=== PATIENT | female | born 1945 | race Caucasian/White ===

== ENCOUNTER 2017-10-12 09:52 | Outpatient (CLI) | payer MEDICARE ==
[~2017-10-12 09:52] MED LIST: Iopamidol 370 76% 100 ML VIAL ONE
== END 2017-10-12 09:53 | disposition home or self-care (01) ==
LOC: BICCT 09:52
PROVIDERS: ATTEND Family Medicine
DX: R31.0 Gross hematuria (principal)
CPT/HCPCS: 74178

== ENCOUNTER 2017-10-26 16:05 | Outpatient (CLI) | payer MEDICARE ==
[2017-10-26 18:05] LABS: Bilirubin Negative (Negative); Blood, Urine Trace (Negative); Clarity CLEAR (Clear); Glucose, Urine (Dipstick) Negative (Negative); Leukocyte Negative (Negative); Nitrite Negative (Negative); Protein, Urine (Dipstick) Negative (Neg-Trace); Urobilinogen 0.2 mg/dL (0.2-1.0); pH, Urine 5.5 (5.0-9.0)
[2017-10-26 18:08] LABS: Bacteria/HPF None Seen HPF (None Seen); Hemoglobin 14.2 g/dL (12.0-16.0); Hyaline Casts/LPF 0-3 HYALINE CAST LPF (0-3 Hyaline); Mean Corpuscular HGB CONC 32.8 g/dL (32.0-36.0); Mean Corpuscular Hemoglobin 31.2 pg (27.0-31.0); Mean Platelet Volume 7.4 fL (7.4-10.4); Platelet Count 310 thou/uL (130-400); RBC Distribution Width 11.7 % (11.5-14.5); RBC/HPF 0-3 HPF (0-3); Red Blood Cell (RBC) Count 4.57 mill/uL (4.20-5.40); Squamous Epithelial 0-3 HPF (0-3); WBC/HPF 0-3 HPF (0-3); White Blood Cell (WBC) Count 9.3 thou/uL (4.8-10.8)
[2017-10-26 18:16] LABS: INR-International Normal Ratio 0.9; PTT 28.4 SEC (22.9-36.1); Prothrombin Time 12.6 SEC (12.0-14.7)
[2017-10-26 18:29] LABS: Anion Gap 10 mmol/L (10-20); BUN (Urea Nitrogen) 23 mg/dL (9.8-20.1); Calc. Creatinine Clearance 0 mL/min (70-130); Calcium 9.6 mg/dL (7.8-10.44); Carbon Dioxide 29 mmol/L (23-31); Chloride 101 mmol/L (98-107); Estimated GFR-MDRD 45; Glucose 83 mg/dL (83-110); Potassium 3.8 mmol/L (3.5-5.1); Sodium 136 mmol/L (136-145)
== END 2017-10-26 16:06 | disposition home or self-care (01) ==
LOC: LABBT 16:05
PROVIDERS: ATTEND Urology
DX: Z01.818 Encounter for other preprocedural examination (principal); N32.9 Bladder disorder, unspecified
CPT/HCPCS: 80048; 81001; 85027; 85610; 85730; 87086; 93005; 93010

== ENCOUNTER 2017-11-01 12:24 | Day surgery (SDC) | payer MEDICARE ==
[2017-10-26 16:20] VITALS: BMI 27.3
[2017-11-01] MEDS ORDERED: cefTRIAXone\\ROCEPHIN 1 GM, Syringe 0.4 ML in Sterile Water 9.6 ML SLOW IVP SCH (13:30)
[2017-11-01] MEDS ORDERED: Lidocaine 1% PF 5 ML VIAL ONE (14:31)
[2017-11-01] MEDS ORDERED: ePHEDrine/0.9% NaCl/PF SYRINGE 50 mg/10 ml ONE (14:31)
[2017-11-01] MEDS ORDERED: PROPOFOL 200 MG/20 ML VIAL ONE (14:31)
[2017-11-01] MEDS ORDERED: Fentanyl 100 MCG/2 ML VIAL ONE (14:55)
[2017-11-01] MEDS ORDERED: B & O ONE (15:10)
[2017-11-01] MEDS ORDERED: Ondansetron HCl/PF 4 MG/2 ML Vial ONE (17:21)
--- NOTE | 2017-11-01 19:34 | OP ---
DATE OF PROCEDURE: 11/01/2017 SERVICE: Urology. SURGEON: Moisés Goodman M.D. PREOPERATIVE DIAGNOSIS: Bladder lesion. POSTOPERATIVE DIAGNOSIS: Bladder lesion. PROCEDURE PERFORMED: Cystoscopy with bladder biopsies. INDICATIONS FOR PROCEDURE: Ms. Torrez is a 72-year-old white female who initially presented to me with a history of hematuria. Cystoscopy demonstrated that she had 2 red patches on the posterior asp ects of her bladder on either side with CT demonstrating thickening of the bladder wall, but no upper tract lesions. This was somewhat concerning for carcinoma in situ. Therefore, we have elected to b ring her back to the operating room for bladder biopsies. Risks and benefits of surgery have been di scussed and she has agreed to proceed forward. DESCRIPTION OF PROCEDURE: After identification of armband and verification of consent, the patient w as brought back to the operating room where she underwent general anesthesia with an LMA. She was th en placed in dorsal lithotomy position and prepped and draped in the usual sterile fashion. After ap propriate timeout, a lubricated 22 Panamanian rigid cystoscope was introduced per urethra into the bladde r. The patient has a fairly significant cystocele which was reduced using 4 x 4 gauzes rolled up int o a cylinder and inserted into the vagina as a pessary. These were lubricated to avoid abrasions on the vaginal serna. Once this was in place, a full cystoscopy was performed and there were no obvious bladder tumors, but the two red patches previously noted were still present. The trigone was inspec susi and there was some initial difficulty finding the ureteral orifices. Methylene blue was given in travenously, but before it could be excreted, the ureters were identified with cystoscope to ensure t hat these were indeed the ureters. They were cannulated with a 0.038 Glidewire, which passed easily into the distal ureter. Satisfied that the lesions were far away from the ureteral orifices, cold cu p biopsy forceps were used to take 2 biopsies from the right posterior bladder lesion and one biopsy from the left posterior lesion which was smaller. A total of 3 biopsies were taken and both the area s were completely fulgurated with the Bugbee electrode. Upon completion, there was excellent hemosta sis and no obvious bleeding. The bladder was emptied and the cystoscope was removed. The vaginal pa cking was removed as well. The patient was then awakened and taken to PACU for recovery in stable co ndition. COMPLICATIONS: None. ESTIMATED BLOOD LOSS: Minimal. RETAINED TUBES AND DRAINS: None. SPECIMENS: Bladder biopsies x3. DISPOSITION: The patient will be discharged home and follow up with me in approximately 1-2 weeks fo r a postop check.
== END 2017-11-01 20:59 | disposition home or self-care (01) ==
LOC: SDC 12:24
PROVIDERS: ATTEND Urology
PROC: 0T5B8ZZ Destruction of Bladder, Via Natural or Artificial Opening Endoscopic (ICD-10-PCS; principal; 2017-11-01)
DX: N32.9 Bladder disorder, unspecified (principal); N39.41 Urge incontinence; N39.0 Urinary tract infection, site not specified; N81.10 Cystocele, unspecified; Z79.82 Long term (current) use of aspirin; Z79.899 Other long term (current) drug therapy; Z90.5 Acquired absence of kidney
CPT/HCPCS: 52214; C1769; Q9968; 88305; A4216; J0696; J2001; J2405; J2704; J3010

== ENCOUNTER 2018-02-28 17:11 | Observation (INO) | payer MEDICARE ==
[2018-02-28] MEDS ORDERED: hydrALAZINE 20 MG/ML VIAL ONE ×2 (17:45→23:22)
[2018-02-28 17:49] LABS: #Basophils 0.1 thou/uL (0.0-0.2); #Eosinphils 0.2 thou/uL (0.0-0.7); #Lymphocytes 2.8 thou/uL (1.20-3.40); #Monocytes 0.7 thou/uL (0.11-0.59); #Neutrophils 6.1 thou/uL (1.40-6.50); %Basophils 0.7 % (0.0-1.0); %Eosinophils 1.6 % (0.0-10.0); %Lymphocytes 28.3 % (21.0-51.0); %Monocytes 7.4 % (0.0-10.0); %Neutrophils 62.1 % (42.0-75.0); Hemoglobin 15.1 g/dL (12.0-16.0); Mean Corpuscular HGB CONC 34.1 g/dL (32.0-36.0); Mean Corpuscular Hemoglobin 31.8 pg (27.0-31.0); Mean Corpuscular Volume 93.2 fL (78.0-98.0); Platelet Count 296 thou/uL (130-400); RBC Distribution Width 11.7 % (11.5-14.5); Red Blood Cell (RBC) Count 4.76 mill/uL (4.20-5.40); White Blood Cell (WBC) Count 9.8 thou/uL (4.8-10.8)
[2018-02-28 17:55] LABS: PTT 29.9 SEC (22.9-36.1); Prothrombin Time 13.7 SEC (12.0-14.7)
[2018-02-28 18:14] LABS: CKMB 3.3 ng/mL (0-6.6); Troponin I Less than 0.010 ng/mL (< 0.028)
[2018-02-28 18:15] LABS: ALT (SGPT) 13 U/L (8-55); AST (SGOT) 18 U/L (5-34); Albumin 4.3 g/dL (3.4-4.8); Alkaline Phosphatase 95 U/L (40-150); Anion Gap 13 mmol/L (10-20); BUN (Urea Nitrogen) 15 mg/dL (9.8-20.1); Bilirubin, Total 0.4 mg/dL (0.2-1.2); CK (CPK) 142 U/L (29-168); Calc. Creatinine Clearance 0 mL/min (70-130); Calcium 8.9 mg/dL (7.8-10.44); Carbon Dioxide 23 mmol/L (23-31); Chloride 103 mmol/L (98-107); Estimated GFR-MDRD 43; Globulin 3.7 g/dL (2.4-3.5); Glucose 116 mg/dL (83-110); Potassium 3.8 mmol/L (3.5-5.1); Sodium 135 mmol/L (136-145)
--- NOTE | 2018-02-28 21:52 | CT ---
CT HEAD NONCONTRAST: 02/28/18 HISTORY: Altered mental status. Dizziness. Hypertension. FINDINGS: There is no evidence of acute intracranial hemorrhage or infarct. Ventricles appear normal in size, s hape and position. There is no mass effect or shift of midline structures. The visualized paranasal s inuses remain well aerated. IMPRESSION: No acute intracranial abnormalities are demonstrated on noncontrast CT head. POS: BST
[2018-03-01] MEDS ORDERED: Calcium Carbonate 500 MG ChewTAB PO PRN (00:04)
[2018-03-01] MEDS ORDERED: Nitroglycerin 0.4 MG TAB (25 Tab Bottle) PO PRN (00:04)
[2018-03-01] MEDS ORDERED: Senokot 8.6 MG TAB PO PRN (00:04)
[2018-03-01] MEDS ORDERED: Mag-Al 1200 mg/1200 mg/30 ML UDCUP PO PRN (00:04)
[2018-03-01] MEDS ORDERED: Acetaminophen 325 MG TAB PO PRN (00:04)
[2018-03-01 00:25] LABS: Troponin I Less than 0.010 ng/mL (< 0.028)
--- NOTE | 2018-03-01 00:26 | HP ---
DATE OF ADMISSION: 02/28/2018 The patient was seen and examined on 02/28/2018. PRIMARY CARE PHYSICIAN: MARY Ruby PRIMARY SYSTEMS SUPPORT SPECIALIST: Dr. Weinberg. Please note that patient was sent from Dr. Weinberg's office. CHIEF COMPLAINT: Stroke-like symptoms. HISTORY OF PRESENT ILLNESS: The patient is a 72-year-old female with paroxysmal atrial fibrillation, on anticoagulation, and hypertension, who presented to the emergency room with elevated blood pressu re along with some nonspecific stroke-like symptoms. She was seen by Dr. Weinberg and was referred to the emergency room. Her blood pressure in Dr. Weinberg's office was over 200 systolic per patient repo rt. She has been feeling dizzy since this morning along with some nausea. At times, she has difficu lty writing with the right hand. She had some difficulty walking today. She had some dizziness with out any syncope. No chest pain, palpitations, double vision, blurring of vision, facial asymmetry, w eakness, numbness of any of her extremity reported. In the emergency room, initial vital signs showed temperature 98.7, respirations 20, pulse rate of 67 with a blood pressure 222/105. O2 saturation of 99% on room air. CT scan of the brain was negative for acute findings. She received IV hydralazine along with her nighttime medications in the emergen cy room. PAST MEDICAL HISTORY: 1. Paroxysmal atrial fibrillation, on anticoagulation. 2. Hypertension. 3. Cataracts. 4. Chronic urinary incontinence. 5. History of left renal infarction. 6. Chronic kidney disease, stage 3. PAST SURGICAL HISTORY: 1. Ablation. 2. Bilateral cataract surgery. 3. Bladder suspension. 4. Hysterectomy. ALLERGIES: The patient denies any drug allergies. CURRENT HOME MEDICATIONS: Eliquis 5 mg twice a day, metoprolol tartrate 50 mg twice a day, flecainid e 50 mg b.i.d. SOCIAL HISTORY: Patient currently lives at home with her family. 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 She makes her own decision with the help of her family. FAMILY HISTORY: Positive for congestive heart failure. REVIEW OF SYSTEMS: The following complete review of systems was negative, unless otherwise mentioned in the HPI or below: Constitutional: Weight loss or gain, ability to conduct usual activities. Sk in: Rash, itching. Eyes: Double vision, pain. ENT/Mouth: Nose bleeding, neck stiffness, pain, te nderness. Cardiovascular: Palpitations, dyspnea on exertion, orthopnea. Respiratory: Shortness of breath, wheezing, cough, hemoptysis, fever, or night sweats. Gastrointestinal: Poor appetite, abdo nakia pain, heartburn, nausea, vomiting, constipation, or diarrhea. Genitourinary: Urgency, frequen cy, dysuria, nocturia. Musculoskeletal: Pain, swelling. Neurologic/Psychiatric: Anxiety, depressi on. Allergy/Immunologic: Skin rash, bleeding tendency. PHYSICAL EXAMINATION: VITAL SIGNS: As discussed above. GENERAL: A 72-year-old female in no apparent distress. HEENT: Head atraumatic, normocephalic. Sclerae are anicteric. Moist mucous membrane, no oral lesio n. NECK: Supple, no JVD appreciated. No carotid bruit. LUNGS: Clear to auscultation bilaterally. No wheezing, rales or rhonchi. HEART: S1 and S2 present. Regular rate and rhythm. No murmur, rubs, or gallops appreciated. ABDOMEN: Soft, nontender, bowel sounds present. EXTREMITIES: No edema or calf tenderness. NEUROLOGIC: Cranial nerves II-XII were normal on examination. Power was 5/5 in all extremities. Fi furp-im-ojcx and selb-ru-pzmw test was normal. Reflexes were equivocal. Sensation to touch was norm al bilaterally. Power was 5/5 in all extremities. PSYCHIATRY: Alert, awake, oriented x3. SKIN: Warm and dry. LYMPH NODES: No palpable lymph nodes in the neck. PERIPHERAL VASCULAR: Radial pulses palpable bilaterally. MUSCULOSKELETAL: No joint swelling or tenderness. LABORATORY FINDINGS: CBC showed WBC 9.8 with hemoglobin 15.1, hematocrit 44.4, platelets 296. PT, I NR, PTT normal range. Chemistries showed sodium 135, potassium 3.8, chloride 103, bicarbonate 23, BU N 15, creatinine 1.22. Troponin was negative. CT scan of the brain, by my review, was negative for acute findings. EKG, by my review, showed sinus rhythm with some nonspecific ST-T-wave changes. IMPRESSION: 1. Hypertensive urgency with suspected transient ischemic attack, rule out cerebrovascular accident. 2. Dizziness with nausea along with generalized weakness, probably secondary to #1. 3. Paroxysmal atrial fibrillation, on anticoagulation. 4. History of hypertension. 5. History of left renal infarction. 6. Chronic kidney disease, stage 3. 7. Chronic urinary incontinence. 8. Mild hyponatremia. PLAN: The patient will be monitored in the stroke unit. We will get stroke workup including MRI of the brain and echocardiogram. Cardiology, Dr. Weinberg, who referred the patient to the emergency room , will be consulted. We will also consult Neurology. We will resume her home medications. P.r.n. a ntihypertensives. Plan of care was discussed with the patient and the family in detail. They stated understanding.
[2018-03-01 01:05] VITALS: BMI 27.0
[2018-03-01] MEDS ORDERED: Labetalol HCl 100 MG/20 ML VIAL SLOW IVP PRN (01:08)
[2018-03-01] MEDS ORDERED: cloNIDine 0.1 MG TAB PO PRN (01:08)
[2018-03-01 06:15] LABS: Cardiac Risk 3.8 (Less than 4.5)
[2018-03-01] MEDS ORDERED: Flecainide 50 MG TAB PO SCH (09:00)
[2018-03-01] MEDS ORDERED: Metoprolol Tartrate 50 MG TAB PO SCH (09:00)
[2018-03-01] MEDS ORDERED: Apixaban 5 MG TAB PO SCH (09:00)
--- NOTE | 2018-03-01 10:44 | MRI ---
MRI BRAIN NONCONTRAST: HISTORY: 72-year-old female with stroke. Nausea. Atrial fibrillation. FINDINGS: The ventricles are normal in size and configuration. There is no restricted diffusion, midline shift or any other mass effect, recent intraaxial hemorrhage, or extraaxial fluid collection. There are m ultiple scattered small T2-hyperintensities in the cerebral white matter consistent with mild chronic ischemic white matter changes due to mild microvascular atherosclerosis. IMPRESSION: 1. Mild chronic ischemic white matter changes. 2. Otherwise negative. jn[] POS: DALY
--- NOTE | 2018-03-01 11:16 | ULT ---
BILATERAL CAROTID DUPLEX ULTRASOUND: Date: 02/27/18 HISTORY: TIA. FINDINGS: Real-time color Doppler evaluation of the right and left carotid systems was performed. This showed e vidence of some intimal thickening. On the right side, peak systolic velocities of the common carotid were 76 cm/second. Internal carotid velocities were 51 cm/second and external carotid velocities were 97 cm/second. On the left side, peak systolic velocities of the common carotid were 61 cm/second. Internal carotid velocities were 49 cm/second and external carotid velocities were 76 cm/second. Vertebral flow was antegrade bilaterally. IMPRESSION: No evidence of hemodynamically significant stenosis of either internal carotid artery. POS: TPC
[2018-03-01] MEDS ORDERED: Amlodipine 10 MG TAB PO SCH (14:00)
[2018-03-01 16:02] VITALS: BP 166/71; TEMP 97.3
--- NOTE | 2018-03-01 19:13 | CON ---
DATE OF CONSULTATION: 03/01/2018 REASON FOR CONSULTATION: Hypertensive urgency. PRIMARY CYBER SECURITY: Barrett Weinberg MD HISTORY OF PRESENT ILLNESS: Ms. Torrez is a very pleasant 72-year-old woman who has been seen and evaluated by Dr. Weinberg. She was last seen in the office yesterday. She was evaluated for hypertens ion. Blood pressure was 200/100. She had symptoms of shortness of breath and nausea. She decided t o proceed to the emergency room. Her blood pressure has been improved after changing her medications . No chest pain or pressure noted. Her most recent echo suggested a normal LVEF. She did undergo a brain MRI that was felt to be unremarkable. There was concern for TIA. PAST MEDICAL HISTORY: Paroxysmal atrial fibrillation; hypertension; cataract surgery; urinary incont inence; previous renal infarction; chronic kidney disease, stage 3; cataract surgery; bladder suspens ion; hysterectomy. ALLERGIES: None. MEDICATIONS: Eliquis, metoprolol, and flecainide. SOCIAL HISTORY: No current tobacco or alcohol use. REVIEW OF SYSTEMS: Ten-point review of systems reviewed and as above, otherwise negative. PHYSICAL EXAMINATION: GENERAL: The patient is a pleasant female, who is in no acute distress. The patient appears her sta susi age. VITAL SIGNS: Blood pressure 166/71, pulse 58, temperature 97.3. NEUROLOGIC: The patient is alert and oriented times 3 with no focal neurologic deficits. HEENT: Sclerae without icterus. Mouth has moist mucous membranes with normal pallor. NECK: No JVD. Carotid upstroke brisk. No bruits bilaterally. LUNGS: Clear to auscultation with unlabored respirations. BACK: No scoliosis or kyphosis. CARDIAC: Regular rate and rhythm with normal S1 and S2. No S3 or S4 noted. No significant rubs, murmurs, thrills, or gallops noted throughout the precordium. PMI is not displaced. There is no parasternal heave. ABDOMEN: Soft, nontender, nondistended. No peritoneal signs present. No hepatosplenomegaly. No abnormal striae. EXTREMITIES: 2+ femoral and 2+ dorsalis pedis pulses. No cyanosis, clubbing, or edema. SKIN: No gross abnormalities. PERTINENT LABORATORY DATA: Hemoglobin 15.1, creatinine 1.22 with a GFR of 43. IMPRESSION: Hypertensive urgency. RECOMMENDATIONS: MRI is negative. At this point, we will continue to adjust medications. Current m edications include amlodipine in addition to metoprolol. 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 May also consider hydralazine and/or nitrates. At thi s point, given her blood pressure is stable and she is asymptomatic, it would be okay from my standpo int to discharge home with close outpatient followup.
[2018-03-01] MEDS ORDERED: Atorvastatin Calcium 10 MG TAB PO SCH (21:00)
[2018-03-02] MEDS ORDERED: Amlodipine 10 MG TAB PO SCH (09:00)
--- NOTE | 2018-03-02 13:06 | DIS ---
PRIMARY CARE PHYSICIAN: Dr. Emiliana Schrader DATE OF ADMISSION: 02/28/2018 DATE OF DISCHARGE: 03/01/2018 DISCHARGE DIAGNOSES: 1. Hypertensive urgency. 2. Hypertensive encephalopathy. 3. Transient ischemic attack ruled out. 4. Hypertension. 5. Chronic atrial fibrillation. 6. Chronic kidney disease stage 3, chronic. CONSULTATIONS: None. PROCEDURES: 1. Echocardiogram 03/01/2018 showed EF of 55-60% and grade II diastolic dysfunction, moderate MR and mild TR. 2. Carotid Dopplers that showed no hemodynamically significant flow. 3. Brain MRI showed no acute intracerebral changes, but some chronic small vessel microvascular monroe ges. HISTORY AND PHYSICAL: Ms. Torrez is a 72-year-old female who presented to the emergency department for evaluation on 02/28/2018 for nonspecific symptoms described on admission to be dizziness, nausea , and difficulty using her right hand to write and walking. There was concern of stroke. She was no susi to be hypertensive in the ER, so we were called for admission. HOSPITAL COURSE: The patient was seen and examined by Dr. Clifford on 02/28/2018, she was started on an tihypertensives and stroke protocol was initiated. Cardiology was consulted, Dr. De La Rosa, was on c all and saw the patient the following day. Neurology was consulted as well. After resolution of her increased blood pressure, her symptoms resolved and did not recur. MRI was u nremarkable for acute changes, carotid Dopplers were negative for hemodynamically significant restric tion. An echocardiogram was normal except for diastolic dysfunction. Cardiology had no new recommen dations. She was started on Norvasc 10 mg daily for blood pressure control with a good response and was stable for discharge with outpatient followup. PHYSICAL EXAMINATION: The patient was seen and examined on the day of discharge. Discharge plan and disposition was discussed with the patient and her face to face at the bedside. DISCHARGE MEDICATIONS: New medication; Norvasc 10 mg p.o. daily. MEDICATIONS TO CONTINUE: 1. Metoprolol tartrate 50 mg p.o. b.i.d. 2. Flecainide 50 mg p.o. b.i.d. 3. Eliquis 5 mg p.o. b.i.d. FOLLOWUP APPOINTMENTS: 1. Primary care physician within a week. 2. Dr. Weinberg in 2-3 weeks. DISCHARGE CONDITION: Stable. DISPOSITION: She will be discharged home via private vehicle with her . DISCHARGE ACTIVITY: Per cardiopulmonary limits. DISCHARGE DIET: Heart healthy diet recommended.
== END 2018-03-01 18:29 | disposition home or self-care (01) ==
LOC: ERS 17:11 → 2SE 22:50
PROVIDERS: ADMIT Internal Medicine; ATTEND Internal Medicine
DX: I16.0 Hypertensive urgency (principal); I67.4 Hypertensive encephalopathy; I48.0 Paroxysmal atrial fibrillation; I12.9 Hypertensive chronic kidney disease with stage 1 through stage 4 chronic kidney disease, or unspecified chronic kidney disease; N18.3 Chronic kidney disease, stage 3 (moderate); I48.2 Chronic atrial fibrillation; E87.1 Hypo-osmolality and hyponatremia; N39.498 Other specified urinary incontinence; Z79.01 Long term (current) use of anticoagulants; Z79.899 Other long term (current) drug therapy; Z98.49 Cataract extraction status, unspecified eye; Z96.1 Presence of intraocular lens
CPT/HCPCS: 70450; 70551; 80053; 80061; 82550; 82553; 84484 ×2; 85025; 85610; 85730; 93005; 93306; 93880; 94760; 96374; 97116; 97139 ×3; 99285; G0378 ×2; G8978; G8979; G8980; 36415; G9162-GN-CJ; G9163-GN-CI; J0360

== ENCOUNTER 2018-03-28 14:31 | Outpatient (CLI) | payer MEDICARE, OTHER | END 2018-03-28 14:32 | disposition home or self-care (01) | LOC: BICMAMMO 14:31 | PROVIDERS: ATTEND Obstetrics & Gynecology | DX: Z12.31 Encounter for screening mammogram for malignant neoplasm of breast (principal); Z13.820 Encounter for screening for osteoporosis; M81.0 Age-related osteoporosis without current pathological fracture; M85.88 Other specified disorders of bone density and structure, other site | CPT/HCPCS: 77063; 77067 ==

== ENCOUNTER 2018-05-05 05:57 | Inpatient (IN) | payer MEDICARE ==
[2018-05-04 08:22] VITALS: BMI 26.6
[2018-05-05] MEDS ORDERED: Lidocaine 1% w/Epinephrine 1:100K 30 ML VIAL ONE (06:55)
[2018-05-05] MEDS ORDERED: Oxytocin 10 UNITS/ML VIAL ONE (07:00)
[2018-05-05] MEDS ORDERED: CEFAZOLIN/Water 2 GM/20 ML SYRINGE ONE (07:21)
[2018-05-05] MEDS ORDERED: Fentanyl 100 MCG/2 ML VIAL ONE (07:26)
[2018-05-05] MEDS ORDERED: Ibuprofen 600 MG TAB PO PRN (12:38)
[2018-05-05] MEDS ORDERED: Acetaminophen/Codeine 30-300mg Tablet PO PRN (12:38)
[2018-05-05] MEDS ORDERED: PROPOFOL 200 MG/20 ML VIAL ONE (13:37)
[2018-05-05] MEDS ORDERED: Lidocaine 1% PF 5 ML VIAL ONE (13:37)
[2018-05-05] MEDS ORDERED: Glycopyrrolate 0.2 MG/ML 5 ML SYRINGE ONE (13:37)
[2018-05-05] MEDS ORDERED: ePHEDrine/0.9% NaCl/PF SYRINGE 50 mg/10 ml ONE (13:37)
[2018-05-05] MEDS ORDERED: Dexamethasone 20 MG/5 ML VIAL ONE (13:37)
[2018-05-05] MEDS ORDERED: Ondansetron PF 4 MG/2 ML Vial SLOW IVP PRN (15:34)
[2018-05-05] MEDS ORDERED: Ondansetron ODT 4 MG TAB PO PRN (15:35)
[2018-05-05 16:39] LABS: #Basophils 0.1 thou/uL (0.0-0.2); #Eosinphils 0.3 thou/uL (0.0-0.7); #Lymphocytes 2.5 thou/uL (1.20-3.40); #Monocytes 0.9 thou/uL (0.11-0.59); #Neutrophils 4.5 thou/uL (1.40-6.50); %Basophils 0.6 % (0.0-1.0); %Eosinophils 3.1 % (0.0-10.0); %Lymphocytes 30.6 % (21.0-51.0); %Monocytes 10.9 % (0.0-10.0); %Neutrophils 54.7 % (42.0-75.0); Hemoglobin 12.7 g/dL (12.0-16.0); Mean Corpuscular HGB CONC 30.8 g/dL (32.0-36.0); Mean Corpuscular Hemoglobin 29.3 pg (27.0-31.0); Mean Corpuscular Volume 94.9 fL (78.0-98.0); Mean Platelet Volume 7.8 fL (7.4-10.4); Platelet Count 286 thou/uL (130-400); RBC Distribution Width 12.3 % (11.5-14.5); Red Blood Cell (RBC) Count 4.34 mill/uL (4.20-5.40); White Blood Cell (WBC) Count 8.2 thou/uL (4.8-10.8)
[2018-05-05] MEDS: Flecainide 50 MG TAB PO SCH (20:38)
[2018-05-05] MEDS: Metoprolol Tartrate 50 MG TAB PO SCH (20:38)
[2018-05-06 08:20] VITALS: BP 117/79; TEMP 98.5
[2018-05-06] MEDS: Metoprolol Tartrate 50 MG TAB PO SCH (08:29)
[2018-05-06] MEDS: Flecainide 50 MG TAB PO SCH (08:30)
[2018-05-06] MEDS ORDERED: Estrogens, Conjugated 30 GM TUBE TOP SCH (09:00)
[2018-05-06] MEDS ORDERED: Multivit, Therapeutic 1 TAB PO SCH (09:00)
[2018-05-06] MEDS ORDERED: Apixaban 5 MG TAB PO SCH (09:00)
[2018-05-06] MEDS ORDERED: Amlodipine 10 MG TAB PO SCH (09:00)
--- NOTE | 2018-05-08 11:34 | OP ---
DATE OF PROCEDURE: 05/05/2018 PREOPERATIVE DIAGNOSES: 1. 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 2. Suspected cystocele. 3. Rectocele. 4. Suspected enterocele. 5. Pelvic pain and pressure. POSTOPERATIVE DIAGNOSES: 1. 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 2. Suspected cystocele. 3. Rectocele. 4. Suspected enterocele. 5. Pelvic pain and pressure. 6. Confirmed cystocele, rectocele and enterocele. PROCEDURES PERFORMED: 1. Anterior repair. 2. Posterior repair. 3. Vaginal vault suspension. 4. Procedure to the sacrospinous ligament. 5. Perineorrhaphy. SURGEON: Dr. Nahomi Jefferson SPECIMENS: None. ESTIMATED BLOOD LOSS: Less than 50 mL. ANESTHESIA: General. CLINICAL HISTORY: This patient is a 72-year-old female who presented to my office original ly for a complaint of bladder prolapse in 02/2018. The patient was noted to have a stage 3 cystocele and stage 2 rectocele. The urethra support was noted to be intact and the patient declined any urin e leakage. She has a significant history of hypertension, atrial fibrillation and was on anticoagula tion. A cardiac clearance was requested. 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 Weinberg was her ca rdiologist and had performed a stress tent test for her in 12/2017 and gave clearance for the surgery and recommendations for her anticoagulation medication regimen. The risks, benefits and possible co mplications as well as alternatives of surgery were discussed. The patient also had a Urology workup from her previous MANAGER PLANNING provider which was reviewed prior to the procedure and did not recommend a sli ng procedure. DETAILS OF THE PROCEDURE: The patient was taken to the operating room where general anesthesia was o btained. She was laid in the supine position with her legs in Yellofin stirrups. She was prepped an d draped in usual sterile fashion. She had a Foster catheter placed to gravity draining clear urine. The [place] device was used to get a good visualization of the introitus. There was noted a large bulge mainly from the anterior portion of the vagina. The distal and proximal ends of the bulge ant eriorly were grasped with Allis clamp and injection of Pitressin was performed with blanching of the midline skin. A scalpel was then used from 1 Allis clamp to the other to filet the mucosa and as thi s incision was performed, the left leaflet was grasped with the Allis clamps and the tenotomy scissor s were used to dissect away the tissue out laterally revealing the cystocele defect. In similar fash ion, the opposite side was performed with unveiling of the entirety of cystocele defect. This defect was then closed with [id number]-ju-gwnlw sutures that were gathering and allowed for closure and support of the bladder beyond the defect. The break in the pubo fascia was noted where the enterocele began and this break was then also closed to resupport the sealing of the vaginal cuff. Once this closure was completed, the excess skin on the anterior vaginal wall was trimmed and then the incision was cl osed in a running fashion with excellent hemostasis. The posterior defect was then in similar fashio n, identified and grasped at the distal and proximal ends with the Allis clamps and injection was per formed along the midline. The jamaal shaped defect was opened right at the base of the introitus an d Metzenbaum scissors were used to go undermined right above the midline defect immediately under the mucosa. Once this dissection was performed the left and right leaflet were developed as per same te chnique as the anterior surface and the defect was then gathered with imbricating [id number] int errupted sutures, thereby reducing the posterior defect. The left lateral avascular plane was identi fied and this was developed all the way out to the sacrospinous projection and the ligament, the josh ent was extremely deep and with careful pressure the sacrospinous ligament was identified. The short suture punch was then loaded and the vaginal cuff which had been developed to have a marking knuckle was identified. The short suture punch was then used to go two fingerbreadths medially to anchor in to the sacrospinous ligament. The 0 Prolene suture was then threaded through and pushed all the way back to the suture that was seen coming out at the introitus. This was tagged with a hemostat and th e shunt was then carefully removed and a gentle tug was performed to confirm anchoring into the ligam ent. The free needle was then used to anchor the cuff knuckle and this was threaded through this knu ckle and allowed for retracting of the defect back into the vaginal vault, 8 suture ties were perform ed to anchor this Prolene, and the vaginal cuff into the abdomen. Once this was completed, the poste rior defect was continued to be resolved with the interrupted [id number] sutures and the excess mucosal skin was trimmed and a running suture was used to reapproximate the skin edges. Surgicel str ips were placed underneath the mucosal closure in the space to help reapproximate the tissue and once this was completed, the perineorrhaphy defect was closed much like an episiotomy repair with ga thering of her skin, crown sutures to close the defect and space and then using the suture to re approximate the skin and burying it behind the hymen. The patient tolerated the procedure well. All needle, sponge, lap, and instrument counts were correct x2 at the end of the procedure. Premarin cr eam was used over the anterior and posterior suture lines and the Foster catheter was removed. The pa tient transferred to a [facility] at the end of the procedure and went to the post-surgical unit in satis factory condition. There were no other issues surrounding this surgery. All trimmed skin was not se nt off for pathology.
== END 2018-05-06 11:30 | disposition home or self-care (01) | DRG 747 ==
LOC: SURG A 05:57 → 3SE 11:44
PROVIDERS: ADMIT Obstetrics & Gynecology; ATTEND Obstetrics & Gynecology
PROC: 0JQC0ZZ Repair Pelvic Region Subcutaneous Tissue and Fascia, Open Approach (ICD-10-PCS; principal; 2018-05-05)
PROC: 0WQN0ZZ Repair Female Perineum, Open Approach (ICD-10-PCS; 2018-05-05)
PROC: 0JQC0ZZ Repair Pelvic Region Subcutaneous Tissue and Fascia, Open Approach (ICD-10-PCS; 2018-05-05)
PROC: 0USG0ZZ Reposition Vagina, Open Approach (ICD-10-PCS; 2018-05-05)
DX: N99.3 Prolapse of vaginal vault after hysterectomy (principal); N81.6 Rectocele
CPT/HCPCS: 85025; J0131; J1100; J2001; J2405; J2590; J2704; J3010

== ENCOUNTER 2019-08-13 19:59 | Emergency (ER) | payer MEDICARE ==
--- NOTE | 2019-08-13 21:57 | CT ---
Exam: Head CT without contrast HISTORY: Trip and fall. Left frontal scalp laceration. COMPARISON: 02/28/2018 FINDINGS: Hemorrhage: No intraparenchymal hemorrhage or extra-axial hematoma. Brain parenchyma: Cortical reeder-white matter differentiation is preserved. No mass effect or midline shift. Basilar cisterns are patent.Minimal chronic small vessel ischemic changes white matter. Ventricular system: Ventricles and sulci are patent and symmetric. Calvarium: Intact. Minimal is laceration involving the left frontotemporal scalp. Sinuses and mastoid air cells: Adequate aeration. IMPRESSION: No intracranial posttraumatic sequelae.
--- NOTE | 2019-08-13 22:00 | CT ---
Exam: CT cervical spine without contrast HISTORY: Trauma. Pain. COMPARISON: None FINDINGS: No craniocervical dissociation. Appropriate alignment of the lateral masses of C1 and C2. Intact odon toid process Appropriate alignment of the facets. Multilevel facet arthropathy is noted. Straightening of normal cervical lordosis is presumed to be due to patient position, muscle spasm or cervical collar Soft tissue neck structures: No mass, lymphadenopathy or hematoma. No prevertebral soft tissue swelling. Upper mediastinum and lung apices: Unremarkable Central spinal canal: There is moderate central canal stenosis secondary to a central/left paracentra l disc herniation at C5-C6. Evaluation is limited due to technique. Vertebral bodies: Cervical spine vertebral body height is maintained. No fracture. IMPRESSION: 1. No fracture 2. Straightening of normal cervical lordosis as above. Consider MRI if this concern for ligamentous i njury. 3. Moderate central canal stenosis at C5-C6 due to a disc herniation, presumed be chronic. Correlate clinically.
== END 2019-08-13 22:55 | disposition home or self-care (01) ==
LOC: ERS 19:59
DX: S01.01XA Laceration without foreign body of scalp, initial encounter (principal); I10 Essential (primary) hypertension; I48.91 Unspecified atrial fibrillation; Z79.01 Long term (current) use of anticoagulants; Z79.899 Other long term (current) drug therapy; W18.09XA Striking against other object with subsequent fall, initial encounter; Y92.39 Other specified sports and athletic area as the place of occurrence of the external cause
CPT/HCPCS: 12002; 70450; 72125

== ENCOUNTER 2020-02-05 08:36 | Outpatient (CLI) | payer MEDICARE ==
--- NOTE | 2020-02-05 08:49 | RAD ---
EXAM: 3 views of the right hand COMPARISON: None HISTORY: Thumb pain FINDINGS: 3 views of the hand were performed. Joint space narrowing is seen in the first CMC joint an d interphalangeal joint of the thumb and DIP joint of the small finger. There appears to be a fracture of the distal phalanx of the thumb. No soft tissue swelling is present. IMPRESSION: Distal phalanx fracture of the thumb
== END 2020-02-05 08:37 | disposition home or self-care (01) ==
LOC: RAD-FRANK 08:36
PROVIDERS: ATTEND Nurse Practitioner Family
DX: M79.644 Pain in right finger(s) (principal); S62.521A Displaced fracture of distal phalanx of right thumb, initial encounter for closed fracture

== ENCOUNTER 2020-03-11 18:09 | Emergency (ER) | payer MEDICARE ==
--- NOTE | 2020-03-11 18:43 | CT ---
CT head noncontrast HISTORY: Fall. COMPARISON: 08/13/2019. FINDINGS: There is no evidence of acute intracranial hemorrhage or infarct. The ventricles appear nor mal in size, shape and position. There is no mass effect or shift of midline structures. Visualized paranasal sinuses remain well aera susi. IMPRESSION : No abnormalities are demonstrated.
--- NOTE | 2020-03-11 18:51 | RAD ---
Chest one view HISTORY: Chest pain. Fall. COMPARISON: 09/27/2014. FINDINGS: Cardiac silhouette is magnified by projection. Pulmonary vasculature is unremarkable. Mediastinum is midline. No lobar consolidation or evidence of pneumothorax. IMPRESSION : No abnormalities are demonstrated.
[2020-03-11 19:16] LABS: #Basophils 0.1 thou/uL (0.0-0.2); #Eosinphils 0.1 thou/uL (0.0-0.7); #Lymphocytes 1.3 thou/uL (1.20-3.40); #Monocytes 0.8 thou/uL (0.11-0.59); #Neutrophils 8.5 thou/uL (1.40-6.50); %Basophils 0.7 % (0.0-1.0); %Eosinophils 0.5 % (0.0-10.0); %Lymphocytes 11.8 % (21.0-51.0); %Monocytes 7.8 % (0.0-10.0); %Neutrophils 79.2 % (42.0-75.0); Hemoglobin 14.3 g/dL (12.0-16.0); Mean Corpuscular HGB CONC 33.8 g/dL (32.0-36.0); Mean Corpuscular Hemoglobin 31.6 pg (27.0-31.0); Mean Corpuscular Volume 93.4 fL (78.0-98.0); Mean Platelet Volume 7.8 fL (7.4-10.4); Platelet Count 307 thou/uL (130-400); RBC Distribution Width 11.8 % (11.5-14.5); Red Blood Cell (RBC) Count 4.52 mill/uL (4.20-5.40); White Blood Cell (WBC) Count 10.7 thou/uL (4.8-10.8)
[2020-03-11 19:23] LABS: INR-International Normal Ratio 0.9; Prothrombin Time 12.3 sec (12.0-14.7)
[2020-03-11 19:26] LABS: PTT 20.9 sec (22.9-36.1)
--- NOTE | 2020-03-11 19:31 | RAD ---
Right hand 3 views HISTORY: Fall. Injury. COMPARISON: 02/05/2020. FINDINGS: Nondisplaced fracture involving the base of the distal phalanx thumb with intra-articular e xtension is less visible, with partial healing. Widespread prominent OsteoArthritic changes are again demonstrated, most pronounced at the first carp ometacarpal joint. No new fracture evident. No dislocation or radiopaque foreign bodies. IMPRESSION : Healing right thumb fracture. No new abnormalities. Prominent osteoarthritis.
[2020-03-11 19:40] LABS: ALT (SGPT) 19 U/L (8-55); AST (SGOT) 30 U/L (5-34); Albumin 4.1 g/dL (3.4-4.8); Alkaline Phosphatase 82 U/L (40-110); Anion Gap 15 mmol/L (10-20); BUN (Urea Nitrogen) 23 mg/dL (9.8-20.1); Bilirubin, Total 0.3 mg/dL (0.2-1.2); CK (CPK) 137 U/L (29-168); Calc. Creatinine Clearance 0 mL/min (70-130); Calcium 8.8 mg/dL (7.8-10.44); Carbon Dioxide 22 mmol/L (23-31); Chloride 105 mmol/L (98-107); Estimated GFR-MDRD 37; Globulin 3.8 g/dL (2.4-3.5); Glucose 125 mg/dL (83-110); Protein, Total 7.9 g/dL (6.0-8.3); Sodium 138 mmol/L (136-145)
== END 2020-03-11 21:19 | disposition home or self-care (01) ==
LOC: ERS 18:09
DX: S81.011A Laceration without foreign body, right knee, initial encounter (principal); S60.211A Contusion of right wrist, initial encounter; Z79.899 Other long term (current) drug therapy; W18.30XA Fall on same level, unspecified, initial encounter
CPT/HCPCS: 36415; 70450; 71045; 80053; 82550; 83880; 85025; 85610; 85730; 96360

== ENCOUNTER 2020-06-04 18:51 | Emergency (ER) | payer MEDICARE ==
--- NOTE | 2020-06-04 19:46 | CT ---
CT head noncontrast HISTORY: Fall. Injury. COMPARISON: 03/11/2020. FINDINGS: There is no evidence of acute intracranial hemorrhage or infarct. Mild diffuse cortical atr ophy is stable. There is no mass effect or shift of midline structures. Visualized paranasal sinuses remain well aera susi. IMPRESSION : No acute intracranial abnormalities are demonstrated.
--- NOTE | 2020-06-04 19:57 | CT ---
CT cervical spine noncontrast HISTORY: Fall. Injury. COMPARISON: 08/13/2019. FINDINGS: There is straightening of the normal lordotic curvature. Cervicothoracic junction is intact . No acute fracture or dislocation. Osteophytosis throughout the facets. Mild left posterior paracentral disc protrusion at the C5-6 leve l is unchanged in appearance. Incidental note of a small cystic lesion within the left thyroid lobe. IMPRESSION : Degenerative changes appear stable. No acute osseous abnormalities are demonstrated.
== END 2020-06-04 21:36 | disposition home or self-care (01) ==
LOC: ERS 18:51
DX: S13.4XXA Sprain of ligaments of cervical spine, initial encounter (principal); S00.31XA Abrasion of nose, initial encounter; I10 Essential (primary) hypertension; I48.91 Unspecified atrial fibrillation; G20 Parkinson's disease; W19.XXXA Unspecified fall, initial encounter
CPT/HCPCS: 70450; 72125

== ENCOUNTER 2021-02-28 12:32 | Inpatient (IN) | payer MEDICARE ==
[2021-02-28] MEDS ORDERED: Ketamine 50 MG/ML (10ML VIAL) ONE (12:37)
[2021-02-28] MEDS ORDERED: Rocuronium Bromide 10 MG/ML (10ML VIAL) ONE ×2 (12:37→12:38)
[2021-02-28] MEDS ORDERED: Azithromycin 500 MG VIAL ONE (13:05)
[2021-02-28] MEDS ORDERED: cefTRIAXone\\ROCEPHIN 1 GM VIAL ONE (13:05)
[2021-02-28 13:11] LABS: Actual Bicarbonate (HCO3a) 19.2 mEq/L (22-28); Analyzer IN Cardio ER; Base Excess (BEa) -7.7 mEq/L (-2.0 to +3.0); Calcium, Ionized (arterial) 1.08 mmol/L (1.12-1.30); Carboxyhemoglobin (COHb) 0.3 gm% (0.0-3.0); Hemoglobin (Hb) 12.6 g/dL (12.0-16.0); O2 Tension (PaO2), arterial 68.4 mmHg (> 70.0); Potassium - ABG Lab 4.11 mmol/L (3.70-5.30); pH, Arterial 7.26 (7.35-7.45)
[2021-02-28 13:14] LABS: Puncture Site RFA
[2021-02-28] MEDS ORDERED: Fentanyl CADD 100 ML IV SCH (13:15)
[2021-02-28 13:18] LABS: Hemoglobin 11.8 g/dL (12.0-16.0); Mean Corpuscular Hemoglobin 32.3 pg (27.0-31.0); Mean Corpuscular Volume 95.1 fL (78.0-98.0); Mean Platelet Volume 6.8 fL (7.4-10.4); Platelet Count 336 thou/uL (130-400); RBC Distribution Width 11.6 % (11.5-14.5); Red Blood Cell (RBC) Count 3.67 mill/uL (4.20-5.40); White Blood Cell (WBC) Count 24.6 thou/uL (4.8-10.8)
[2021-02-28 13:22] LABS: Bacteria/HPF 3+ HPF (None Seen); Bilirubin Negative (Negative); Blood, Urine 2+ (Negative); Clarity Extra Turbid (Clear); Glucose, Urine (Dipstick) Normal (Negative); Ketone, Urine Negative (Negative); Leukocyte 500 Leu/uL (Negative); Nitrite 2+ (Negative); Protein, Urine (Dipstick) 300 mg/dL (Neg-Trace); RBC/HPF Greater than 50 HPF (0-3); Specific Gravity, Urine 1.017 (1.002-1.036); Squamous Epithelial None Seen HPF (0-3); Urobilinogen Normal mg/dL (Less than 2); WBC/HPF Greater than 50 HPF (0-3); pH, Urine 7.5 (5.0-9.0)
[2021-02-28 13:36] LABS: Band 10 % (5-11); Lymphocytes 4 % (21-51); MDiff Complete? YES; Metamyelocyte 1 % (0-0); Monocytes 1 % (0-10); Neutrophil 84 % (42-75); Platelet Morphology Comment Appears Adequate; RBC Morphology Normal
[2021-02-28 13:41] LABS: ALT (SGPT) 237 U/L (8-55); AST (SGOT) 226 U/L (5-34); Alkaline Phosphatase 109 U/L (40-110); Anion Gap 14 mmol/L (10-20); BUN (Urea Nitrogen) 17 mg/dL (9.8-20.1); Bilirubin, Total 0.8 mg/dL (0.2-1.2); Calc. Creatinine Clearance 0 mL/min (70-130); Calcium 7.5 mg/dL (7.8-10.44); Carbon Dioxide 19 mmol/L (23-31); Chloride 97 mmol/L (98-107); Globulin 2.5 g/dL (2.4-3.5); Glucose 227 mg/dL (83-110); Potassium 4.5 mmol/L (3.5-5.1); Protein, Total 5.5 g/dL (5.8-8.1); Sodium 125 mmol/L (136-145)
[2021-02-28] MEDS ORDERED: Norepinephrine 8 MG/0.9% NS 250 ML ONE (13:59)
[2021-02-28 14:13] LABS: SARS-CoV-2 NAA Rapid Test Not Detected (NotDetected)
[2021-02-28] MEDS ORDERED: Cefepime 2 GM VIAL ONE (15:30)
[2021-02-28] MEDS ORDERED: Vancomycin 1 GM/200 ML BAG ONE (15:30)
[2021-02-28 16:37] LABS: INR-International Normal Ratio 1.1; PTT 30.6 sec (22.9-36.1); Prothrombin Time 14.2 sec (12.0-14.7)
[2021-02-28 16:41] LABS: Lactic Acid 1.6 mmol/L (0.5-2.2)
[2021-02-28 16:45] LABS: Magnesium 1.7 mg/dL (1.6-2.6)
[2021-02-28] MEDS ORDERED: Norepinephrine 8 MG/0.9% NS 250 ML IVPB PRN (17:46)
[2021-02-28] MEDS ORDERED: Dextrose 50% Abboject 50 ML SYRINGE SLOW IVP PRN (17:53)
[2021-02-28] MEDS ORDERED: Insulin Regular 300 UNITS/3 ML VIAL SC PRN (17:53)
[2021-02-28] MEDS ORDERED: Dextrose 5% in Water 1,000 ML IV PRN (17:53)
[2021-02-28] MEDS ORDERED: Ventilator Sedation Protocol 1 EACH FS SCH (18:00)
[2021-02-28] MEDS ORDERED: Electrolyte Replacement Protocol 1 EACH FS SCH (18:00)
[2021-02-28] MEDS ORDERED: Meropenem 1 GM in Sodium Chloride 0.9% 100 ML IVPB SCH (18:00)
[2021-02-28 18:19] LABS: Lactic Acid 1.5 mmol/L (0.5-2.2)
[2021-02-28 18:22] LABS: Anion Gap 11 mmol/L (10-20); BUN (Urea Nitrogen) 17 mg/dL (9.8-20.1); Calc. Creatinine Clearance 51 mL/min (70-130); Carbon Dioxide 21 mmol/L (23-31); Chloride 98 mmol/L (98-107); Glucose 184 mg/dL (83-110); Potassium 4.3 mmol/L (3.5-5.1); Sodium 126 mmol/L (136-145)
[2021-02-28 18:28] LABS: Troponin I 0.023 ng/mL (< 0.028)
[2021-02-28] MEDS ORDERED: Magnesium Sulfate 4 GM in Sodium Chloride 0.9% 250 ML 250 ML IVPB SCH (18:30)
[2021-02-28] MEDS ORDERED: Electrolyte Replacement Protocol FS PRN (18:30)
[2021-02-28] MEDS ORDERED: DISCONTINUE PREVIOUS NARCOTIC PAIN MEDICATIONS AND BENZODIAZEPINES FS SCH (18:30)
[2021-02-28] MEDS ORDERED: Morphine 2 MG/ML VIAL SLOW IVP PRN (18:30)
[2021-02-28] MEDS ORDERED: Fentanyl BOLUS 250 ML IVPB PRN (18:30)
[2021-02-28] MEDS ORDERED: Propofol BOLUS 1,000 MG/100 ML VIAL IV PRN (18:30)
[2021-02-28] MEDS: Hydrocortisone Sod Succ/PF 100 mg/2 ml Vial IVP SCH (18:34)
[2021-02-28] MEDS ORDERED: Sodium Bicarbonate 150 MEQ in Dextrose 5% in Water 1,000 ML IV SCH ×2 (19:00→22:59)
[2021-02-28] MEDS: VANCOMYCIN 1.25 GM/250 ML BAG 1.25 GM in Premix Bag 1 BAG IVPB SCH (20:09)
[2021-02-28] MEDS: Propofol 1,000 MG/100 ML VIAL IV PRN (20:40)
[2021-02-28] MEDS ORDERED: MEROPENEM 1 GM/50 ML 1 GM in Premix Bag 1 BAG IVPB SCH (21:00)
[2021-02-28] MEDS: Famotidine/PF 20 mg/2ml Vial SLOW IVP SCH (21:08)
[2021-02-28] MEDS: Insulin Regular 300 UNITS/3 ML VIAL SC PRN (21:35)
[2021-02-28 22:23] LABS: Anion Gap 10 mmol/L (10-20); BUN (Urea Nitrogen) 17 mg/dL (9.8-20.1); Calc. Creatinine Clearance 52 mL/min (70-130); Calcium 7.6 mg/dL (7.8-10.44); Carbon Dioxide 24 mmol/L (23-31); Chloride 98 mmol/L (98-107); Glucose 183 mg/dL (83-110); Potassium 4.7 mmol/L (3.5-5.1); Sodium 127 mmol/L (136-145)
[2021-03-01] MEDS: Insulin Regular 300 UNITS/3 ML VIAL SC PRN ×2 (04:25→09:27)
[2021-03-01 04:36] LABS: Band 7 % (5-11); Hemoglobin 11.4 g/dL (12.0-16.0); Lymphocytes 3 % (21-51); MDiff Complete? YES; Mean Corpuscular HGB CONC 33.4 g/dL (32.0-36.0); Mean Corpuscular Hemoglobin 31.4 pg (27.0-31.0); Monocytes 3 % (0-10); Neutrophil 86 % (42-75); Platelet Count 347 thou/uL (130-400); Platelet Morphology Comment Appears Adequate; RBC Distribution Width 11.6 % (11.5-14.5); Reactive Lymphocytes 1 % (0-10); Red Blood Cell (RBC) Count 3.64 mill/uL (4.20-5.40); White Blood Cell (WBC) Count 21.8 thou/uL (4.8-10.8)
[2021-03-01 04:46] LABS: Phosphorus 3.2 mg/dL (2.3-4.7)
[2021-03-01 04:50] LABS: ALT (SGPT) 164 U/L (8-55); AST (SGOT) 118 U/L (5-34); Albumin 2.8 g/dL (3.4-4.8); Alkaline Phosphatase 94 U/L (40-110); Anion Gap 12 mmol/L (10-20); BUN (Urea Nitrogen) 16 mg/dL (9.8-20.1); Bilirubin, Total 0.4 mg/dL (0.2-1.2); Calc. Creatinine Clearance 53 mL/min (70-130); Calcium 7.9 mg/dL (7.8-10.44); Carbon Dioxide 24 mmol/L (23-31); Chloride 95 mmol/L (98-107); Globulin 2.7 g/dL (2.4-3.5); Glucose 193 mg/dL (83-110); Magnesium 2.5 mg/dL (1.6-2.6); Potassium 4.2 mmol/L (3.5-5.1); Protein, Total 5.5 g/dL (5.8-8.1); Sodium 127 mmol/L (136-145)
[2021-03-01 04:54] LABS: Troponin I 0.017 ng/mL (< 0.028)
[2021-03-01] MEDS ORDERED: Dextrose 5 % And 0.9 % NaCl 1,000 ML IV SCH (05:00)
[2021-03-01] MEDS: Propofol 1,000 MG/100 ML VIAL IV PRN ×3 (05:20→21:51)
[2021-03-01] MEDS: Hydrocortisone Sod Succ/PF 100 mg/2 ml Vial IVP SCH ×2 (05:20→09:09)
[2021-03-01] MEDS: Heparin 5,000 UNITS/ML VIAL SC SCH ×3 (05:21→21:16)
[2021-03-01 07:13] LABS: Actual Bicarbonate (HCO3a) 23.9 mEq/L (22-28); Base Excess (BEa) -0.7 mEq/L (-2.0 to +3.0); CO2 Tension 38.8 mmHg (35.0-45.0); Calcium, Ionized (arterial) 1.07 mmol/L (1.12-1.30); Carboxyhemoglobin (COHb) 0.6 gm% (0.0-3.0); Hemoglobin (Hb) 6.4 g/dL (12.0-16.0); O2 Tension (PaO2), arterial 85.7 mmHg (> 70.0); pH, Arterial 7.41 (7.35-7.45)
[2021-03-01] MEDS: MEROPENEM 1 GM/50 ML 1 GM in Premix Bag 1 BAG IVPB SCH ×2 (08:15→21:26)
[2021-03-01] MEDS: Famotidine/PF 20 mg/2ml Vial SLOW IVP SCH ×2 (08:15→20:23)
[2021-03-01] MEDS: Aspirin 325 MG TAB PO SCH ×2 (08:15→08:30)
[2021-03-01 08:48] LABS: Puncture Site LRA
[2021-03-01] MEDS ORDERED: Fentanyl CADD 100 ML ONE (09:49)
[2021-03-01] MEDS: Fentanyl CADD 100 ML IV SCH (10:15)
[2021-03-01] MEDS: Lorazepam 2 MG/ML VIAL SLOW IVP PRN (17:04)
[2021-03-01] MEDS: VANCOMYCIN 1.25 GM/250 ML BAG 1.25 GM in Premix Bag 1 BAG IVPB SCH (20:23)
[2021-03-02] MEDS ORDERED: Fentanyl CADD 100 ML ONE ×2 (01:33→19:40)
[2021-03-02] MEDS: Fentanyl CADD 100 ML IV SCH (01:47)
[2021-03-02 03:46] LABS: Hemoglobin 10.4 g/dL (12.0-16.0); Mean Corpuscular HGB CONC 34.1 g/dL (32.0-36.0); Mean Corpuscular Hemoglobin 32.2 pg (27.0-31.0); Mean Corpuscular Volume 94.7 fL (78.0-98.0); Mean Platelet Volume 6.9 fL (7.4-10.4); Platelet Count 296 thou/uL (130-400); RBC Distribution Width 11.7 % (11.5-14.5); Red Blood Cell (RBC) Count 3.22 mill/uL (4.20-5.40); White Blood Cell (WBC) Count 14.7 thou/uL (4.8-10.8)
[2021-03-02 03:57] LABS: ALT (SGPT) 109 U/L (8-55); AST (SGOT) 46 U/L (5-34); Albumin 2.8 g/dL (3.4-4.8); Alkaline Phosphatase 87 U/L (40-110); Anion Gap 11 mmol/L (10-20); BUN (Urea Nitrogen) 16 mg/dL (9.8-20.1); Bilirubin, Total 0.4 mg/dL (0.2-1.2); Calc. Creatinine Clearance 51 mL/min (70-130); Calcium 8.4 mg/dL (7.8-10.44); Carbon Dioxide 26 mmol/L (23-31); Chloride 98 mmol/L (98-107); Globulin 2.6 g/dL (2.4-3.5); Glucose 99 mg/dL (83-110); Magnesium 2.3 mg/dL (1.6-2.6); Phosphorus 2.8 mg/dL (2.3-4.7); Potassium 4.4 mmol/L (3.5-5.1); Protein, Total 5.4 g/dL (5.8-8.1); Sodium 131 mmol/L (136-145)
[2021-03-02 04:27] LABS: Band 3 % (5-11); Eosinophils 2 % (0-10); Lymphocytes 8 % (21-51); MDiff Complete? YES; Monocytes 4 % (0-10); Myelocyte 1 % (0-0); Neutrophil 76 % (42-75); Platelet Morphology Comment Appears Adequate; RBC Morphology Normal; Reactive Lymphocytes 3 % (0-10)
[2021-03-02] MEDS: Lorazepam 2 MG/ML VIAL SLOW IVP PRN (04:30)
[2021-03-02] MEDS: Propofol 1,000 MG/100 ML VIAL IV PRN ×2 (05:31→18:01)
[2021-03-02] MEDS: Heparin 5,000 UNITS/ML VIAL SC SCH (05:32)
[2021-03-02 06:40] LABS: Actual Bicarbonate (HCO3a) 24.5 mEq/L (22-28); Base Excess (BEa) -0.3 mEq/L (-2.0 to +3.0); CO2 Tension 40.2 mmHg (35.0-45.0); Calcium, Ionized (arterial) 1.16 mmol/L (1.12-1.30); Carboxyhemoglobin (COHb) 0.3 gm% (0.0-3.0); Hemoglobin (Hb) 11.3 g/dL (12.0-16.0); Potassium - ABG Lab 4.11 mmol/L (3.70-5.30)
[2021-03-02 06:47] LABS: Puncture Site RRA
[2021-03-02] MEDS: Senokot S 8.6-50 MG TAB PO SCH ×2 (10:02→20:01)
[2021-03-02] MEDS: Apixaban 5 MG TAB PO SCH ×2 (10:02→20:01)
[2021-03-02] MEDS: Aspirin 325 MG TAB PO SCH (10:02)
[2021-03-02] MEDS: Polyethylene Glycol 3350 17 GM Packet PO SCH (10:02)
[2021-03-02] MEDS: MEROPENEM 1 GM/50 ML 1 GM in Premix Bag 1 BAG IVPB SCH ×2 (10:03→20:00)
[2021-03-02 13:30] LABS: Fibrinogen 491 mg/dL (253-463); INR-International Normal Ratio 1.1
[2021-03-02 13:35] LABS: FSP-Qualitative ABNORMAL (Normal)
[2021-03-02 13:36] LABS: FSP-Semiquantitative >=20 & <40 mcg/mL (Less than 5)
[2021-03-02 13:51] LABS: D-Dimer Test 4.82 *mcg/mL (0.27-0.43)
[2021-03-02] MEDS: Famotidine/PF 20 mg/2ml Vial SLOW IVP SCH (15:57)
[2021-03-02] MEDS: Acetaminophen 325 MG TAB PER TUBE PRN (18:45)
[2021-03-02] MEDS: Famotidine 20 MG TAB PER TUBE SCH (20:01)
[2021-03-03 04:45] LABS: ALT (SGPT) 81 U/L (8-55); AST (SGOT) 44 U/L (5-34); Albumin 2.7 g/dL (3.4-4.8); Alkaline Phosphatase 85 U/L (40-110); Anion Gap 8 mmol/L (10-20); BUN (Urea Nitrogen) 18 mg/dL (9.8-20.1); Bilirubin, Total 0.4 mg/dL (0.2-1.2); Calc. Creatinine Clearance 56 mL/min (70-130); Calcium 8.2 mg/dL (7.8-10.44); Carbon Dioxide 27 mmol/L (23-31); Chloride 99 mmol/L (98-107); Globulin 2.7 g/dL (2.4-3.5); Glucose 110 mg/dL (83-110); Magnesium 2.2 mg/dL (1.6-2.6); Phosphorus 3.2 mg/dL (2.3-4.7); Potassium 4.4 mmol/L (3.5-5.1); Protein, Total 5.4 g/dL (5.8-8.1); Sodium 130 mmol/L (136-145)
[2021-03-03 04:46] LABS: Band 2 % (5-11); Eosinophils 4 % (0-10); Hypochromia SLIGHT = 6-15 cells (100X) (0-5/hpf); Lymphocytes 10 % (21-51); MDiff Complete? YES; Mean Corpuscular HGB CONC 33.3 g/dL (32.0-36.0); Mean Corpuscular Hemoglobin 32.1 pg (27.0-31.0); Mean Corpuscular Volume 96.4 fL (78.0-98.0); Mean Platelet Volume 7.1 fL (7.4-10.4); Monocytes 6 % (0-10); Neutrophil 78 % (42-75); Platelet Count 295 thou/uL (130-400); Platelet Morphology Comment Appears Adequate; RBC Distribution Width 11.9 % (11.5-14.5); Red Blood Cell (RBC) Count 3.12 mill/uL (4.20-5.40); White Blood Cell (WBC) Count 12.2 thou/uL (4.8-10.8)
[2021-03-03] MEDS: Propofol 1,000 MG/100 ML VIAL IV PRN (05:44)
[2021-03-03 07:21] LABS: Actual Bicarbonate (HCO3a) 27.8 mEq/L (22-28); Base Excess (BEa) 1.1 mEq/L (-2.0 to +3.0); CO2 Tension 54.1 mmHg (35.0-45.0); Calcium, Ionized (arterial) 1.15 mmol/L (1.12-1.30); Carboxyhemoglobin (COHb) 0.1 gm% (0.0-3.0); Hemoglobin (Hb) 11.2 g/dL (12.0-16.0); O2 Tension (PaO2), arterial 83.8 mmHg (> 70.0); Potassium - ABG Lab 4.79 mmol/L (3.70-5.30); pH, Arterial 7.33 (7.35-7.45)
[2021-03-03 07:22] LABS: ALV-art Gradient 169.425 mmHg (0-20); Puncture Site RRA
[2021-03-03] MEDS: Apixaban 5 MG TAB PO SCH ×2 (08:43→21:00)
[2021-03-03] MEDS: Famotidine 20 MG TAB PER TUBE SCH ×2 (08:43→21:00)
[2021-03-03] MEDS: MEROPENEM 1 GM/50 ML 1 GM in Premix Bag 1 BAG IVPB SCH ×2 (08:43→21:00)
[2021-03-03] MEDS: Polyethylene Glycol 3350 17 GM Packet PO SCH (08:43)
[2021-03-03] MEDS: Senokot S 8.6-50 MG TAB PO SCH ×2 (08:43→21:00)
[2021-03-03] MEDS: Aspirin 325 MG TAB PO SCH (08:43)
[2021-03-03] MEDS: Labetalol HCl 100 MG/20 ML VIAL SLOW IVP PRN (11:23)
[2021-03-04] MEDS: hydrALAZINE 20 MG/ML VIAL SLOW IVP PRN (00:10)
[2021-03-04] MEDS: Labetalol HCl 100 MG/20 ML VIAL SLOW IVP PRN ×2 (01:52→08:33)
[2021-03-04 05:48] LABS: ALT (SGPT) 100 U/L (8-55); AST (SGOT) 239 U/L (5-34); Albumin 2.9 g/dL (3.4-4.8); Alkaline Phosphatase 103 U/L (40-110); Anion Gap 10 mmol/L (10-20); BUN (Urea Nitrogen) 19 mg/dL (9.8-20.1); Bilirubin, Total 0.5 mg/dL (0.2-1.2); Calc. Creatinine Clearance 68 mL/min (70-130); Calcium 8.4 mg/dL (7.8-10.44); Carbon Dioxide 30 mmol/L (23-31); Chloride 96 mmol/L (98-107); Globulin 3.2 g/dL (2.4-3.5); Glucose 153 mg/dL (83-110); Potassium 4.7 mmol/L (3.5-5.1); Protein, Total 6.1 g/dL (5.8-8.1); Sodium 131 mmol/L (136-145)
[2021-03-04 05:57] LABS: Band 2 % (5-11); Eosinophils 2 % (0-10); Hemoglobin 11.1 g/dL (12.0-16.0); Lymphocytes 11 % (21-51); MDiff Complete? YES; Mean Corpuscular HGB CONC 32.3 g/dL (32.0-36.0); Mean Corpuscular Hemoglobin 31.4 pg (27.0-31.0); Mean Corpuscular Volume 97.3 fL (78.0-98.0); Monocytes 2 % (0-10); Neutrophil 83 % (42-75); Platelet Count 322 thou/uL (130-400); Platelet Morphology Comment Appears Adequate; RBC Distribution Width 11.9 % (11.5-14.5); RBC Morphology Normal; Red Blood Cell (RBC) Count 3.54 mill/uL (4.20-5.40); White Blood Cell (WBC) Count 13.9 thou/uL (4.8-10.8)
[2021-03-04] MEDS: MEROPENEM 1 GM/50 ML 1 GM in Premix Bag 1 BAG IVPB SCH ×2 (08:48→20:18)
[2021-03-04] MEDS: Apixaban 5 MG TAB PO SCH ×2 (08:48→20:18)
[2021-03-04] MEDS: Famotidine 20 MG TAB PER TUBE SCH ×2 (08:48→20:18)
[2021-03-04] MEDS: Aspirin 325 MG TAB PO SCH (08:48)
[2021-03-04] MEDS: Senokot S 8.6-50 MG TAB PO SCH ×2 (08:49→20:18)
[2021-03-04] MEDS: Polyethylene Glycol 3350 17 GM Packet PO SCH (08:49)
[2021-03-04] MEDS: Acetaminophen 325 MG TAB PER TUBE PRN ×2 (09:25→22:34)
[2021-03-04] MEDS: Lorazepam 2 MG/ML VIAL SLOW IVP PRN (10:38)
[2021-03-04] MEDS ORDERED: Fentanyl 100 MCG/2 ML VIAL SLOW IVP SCH (11:15)
[2021-03-04] MEDS: Propofol 1,000 MG/100 ML VIAL IV PRN (23:22)
[2021-03-05 04:46] LABS: Band 2 % (5-11); Eosinophils 2 % (0-10); Hemoglobin 10.8 g/dL (12.0-16.0); Hypochromia SLIGHT = 6-15 cells (100X) (0-5/hpf); Lymphocytes 4 % (21-51); MDiff Complete? YES; Mean Corpuscular HGB CONC 32.9 g/dL (32.0-36.0); Mean Corpuscular Hemoglobin 31.6 pg (27.0-31.0); Mean Platelet Volume 7.4 fL (7.4-10.4); Monocytes 9 % (0-10); Neutrophil 83 % (42-75); Platelet Count 328 thou/uL (130-400); Platelet Morphology Comment Appears Adequate; RBC Distribution Width 11.8 % (11.5-14.5); Red Blood Cell (RBC) Count 3.42 mill/uL (4.20-5.40); White Blood Cell (WBC) Count 11.9 thou/uL (4.8-10.8)
[2021-03-05 05:00] LABS: ALT (SGPT) 87 U/L (8-55); AST (SGOT) 191 U/L (5-34); Albumin 2.6 g/dL (3.4-4.8); Alkaline Phosphatase 100 U/L (40-110); Anion Gap 11 mmol/L (10-20); BUN (Urea Nitrogen) 20 mg/dL (9.8-20.1); Bilirubin, Total 0.4 mg/dL (0.2-1.2); Calc. Creatinine Clearance 83 mL/min (70-130); Calcium 8.2 mg/dL (7.8-10.44); Carbon Dioxide 30 mmol/L (23-31); Chloride 97 mmol/L (98-107); Globulin 3.1 g/dL (2.4-3.5); Glucose 117 mg/dL (83-110); Potassium 4.2 mmol/L (3.5-5.1); Protein, Total 5.7 g/dL (5.8-8.1); Sodium 134 mmol/L (136-145)
[2021-03-05] MEDS: Labetalol HCl 100 MG/20 ML VIAL SLOW IVP PRN (07:38)
[2021-03-05] MEDS: Aspirin 325 MG TAB PO SCH (09:06)
[2021-03-05] MEDS: Senokot S 8.6-50 MG TAB PO SCH ×2 (09:06→21:40)
[2021-03-05] MEDS: Apixaban 5 MG TAB PO SCH (09:06)
[2021-03-05] MEDS: Polyethylene Glycol 3350 17 GM Packet PO SCH (09:06)
[2021-03-05] MEDS: Famotidine 20 MG TAB PER TUBE SCH ×2 (09:06→21:40)
[2021-03-05] MEDS: MEROPENEM 1 GM/50 ML 1 GM in Premix Bag 1 BAG IVPB SCH ×2 (09:06→21:41)
[2021-03-05] MEDS: Lorazepam 2 MG/ML VIAL SLOW IVP PRN (10:03)
[2021-03-05] MEDS: hydrALAZINE 20 MG/ML VIAL SLOW IVP PRN (10:03)
[2021-03-05] MEDS ORDERED: Midazolam HCl 2 mg/2 ml Vial ONE (16:14)
[2021-03-05] MEDS ORDERED: Lidocaine 1% (PF) 30 ML VIAL ONE (16:16)
[2021-03-05] MEDS: Propofol 1,000 MG/100 ML VIAL IV PRN ×2 (16:23→23:29)
[2021-03-05] MEDS ORDERED: Midazolam HCl 2 mg/2 ml Vial IVP SCH (16:45)
[2021-03-05] MEDS ORDERED: Lidocaine 1% (PF) 30 ML VIAL FS SCH (16:45)
[2021-03-06 04:49] LABS: Hemoglobin 10.5 g/dL (12.0-16.0); Mean Corpuscular HGB CONC 33.8 g/dL (32.0-36.0); Mean Corpuscular Hemoglobin 32.4 pg (27.0-31.0); Mean Corpuscular Volume 95.8 fL (78.0-98.0); Mean Platelet Volume 7.2 fL (7.4-10.4); Platelet Count 317 thou/uL (130-400); RBC Distribution Width 11.8 % (11.5-14.5); Red Blood Cell (RBC) Count 3.25 mill/uL (4.20-5.40)
[2021-03-06 05:03] LABS: ALT (SGPT) 67 U/L (8-55); AST (SGOT) 120 U/L (5-34); Albumin 2.5 g/dL (3.4-4.8); Alkaline Phosphatase 94 U/L (40-110); Anion Gap 9 mmol/L (10-20); BUN (Urea Nitrogen) 19 mg/dL (9.8-20.1); Bilirubin, Total 0.3 mg/dL (0.2-1.2); Calc. Creatinine Clearance 86 mL/min (70-130); Calcium 8.4 mg/dL (7.8-10.44); Carbon Dioxide 31 mmol/L (23-31); Chloride 101 mmol/L (98-107); Globulin 2.9 g/dL (2.4-3.5); Glucose 138 mg/dL (83-110); Potassium 3.9 mmol/L (3.5-5.1); Protein, Total 5.4 g/dL (5.8-8.1); Sodium 137 mmol/L (136-145)
[2021-03-06 05:24] LABS: Band 2 % (5-11); Eosinophils 4 % (0-10); Lymphocytes 8 % (21-51); MDiff Complete? YES; Monocytes 2 % (0-10); Neutrophil 84 % (42-75); Platelet Morphology Comment Appears Adequate; RBC Morphology Normal
[2021-03-06] MEDS: Senokot S 8.6-50 MG TAB PO SCH ×2 (08:02→20:59)
[2021-03-06] MEDS: Polyethylene Glycol 3350 17 GM Packet PO SCH (08:03)
[2021-03-06] MEDS: MEROPENEM 1 GM/50 ML 1 GM in Premix Bag 1 BAG IVPB SCH ×2 (08:03→21:00)
[2021-03-06] MEDS: Aspirin 325 MG TAB PO SCH (08:03)
[2021-03-06] MEDS: Famotidine 20 MG TAB PER TUBE SCH ×2 (08:03→20:59)
[2021-03-06] MEDS ORDERED: Apixaban 5 MG TAB PO SCH (09:30)
[2021-03-06] MEDS: Apixaban 5 MG TAB PO SCH (20:59)
[2021-03-07] MEDS: Propofol 1,000 MG/100 ML VIAL IV PRN ×2 (02:30→21:13)
[2021-03-07 04:16] LABS: ALT (SGPT) 54 U/L (8-55); AST (SGOT) 68 U/L (5-34); Albumin 2.4 g/dL (3.4-4.8); Alkaline Phosphatase 90 U/L (40-110); Anion Gap 11 mmol/L (10-20); BUN (Urea Nitrogen) 22 mg/dL (9.8-20.1); Bilirubin, Total 0.3 mg/dL (0.2-1.2); Calc. Creatinine Clearance 83 mL/min (70-130); Calcium 8.2 mg/dL (7.8-10.44); Carbon Dioxide 30 mmol/L (23-31); Chloride 101 mmol/L (98-107); Globulin 2.8 g/dL (2.4-3.5); Glucose 133 mg/dL (83-110); Protein, Total 5.2 g/dL (5.8-8.1); Sodium 138 mmol/L (136-145)
[2021-03-07] MEDS: Lorazepam 2 MG/ML VIAL SLOW IVP PRN (04:43)
[2021-03-07 05:11] LABS: Band 13 % (5-11); Eosinophils 3 % (0-10); Hemoglobin 9.5 g/dL (12.0-16.0); Lymphocytes 19 % (21-51); MDiff Complete? YES; Mean Corpuscular HGB CONC 33.2 g/dL (32.0-36.0); Mean Corpuscular Hemoglobin 31.8 pg (27.0-31.0); Mean Corpuscular Volume 95.6 fL (78.0-98.0); Monocytes 8 % (0-10); Neutrophil 57 % (42-75); Platelet Count 319 thou/uL (130-400); RBC Distribution Width 11.8 % (11.5-14.5); Red Blood Cell (RBC) Count 2.99 mill/uL (4.20-5.40); White Blood Cell (WBC) Count 11.9 thou/uL (4.8-10.8)
[2021-03-07] MEDS: Apixaban 5 MG TAB PO SCH ×2 (10:01→21:12)
[2021-03-07] MEDS: Polyethylene Glycol 3350 17 GM Packet PO SCH (10:02)
[2021-03-07] MEDS: Aspirin 325 MG TAB PO SCH (10:02)
[2021-03-07] MEDS: Famotidine 20 MG TAB PER TUBE SCH ×2 (10:02→21:11)
[2021-03-07] MEDS: Senokot S 8.6-50 MG TAB PO SCH ×2 (10:03→21:12)
[2021-03-07] MEDS: Acetaminophen 325 MG TAB PER TUBE PRN (16:14)
[2021-03-08 04:40] LABS: Hemoglobin 9.9 g/dL (12.0-16.0); Mean Corpuscular Hemoglobin 32.6 pg (27.0-31.0); Mean Corpuscular Volume 95.7 fL (78.0-98.0); Mean Platelet Volume 7.6 fL (7.4-10.4); Platelet Count 334 thou/uL (130-400); RBC Distribution Width 11.9 % (11.5-14.5); Red Blood Cell (RBC) Count 3.03 mill/uL (4.20-5.40); White Blood Cell (WBC) Count 13.4 thou/uL (4.8-10.8)
[2021-03-08 04:44] LABS: ALT (SGPT) 59 U/L (8-55); AST (SGOT) 68 U/L (5-34); Albumin 2.4 g/dL (3.4-4.8); Alkaline Phosphatase 125 U/L (40-110); Anion Gap 12 mmol/L (10-20); BUN (Urea Nitrogen) 20 mg/dL (9.8-20.1); Bilirubin, Total 0.4 mg/dL (0.2-1.2); Calc. Creatinine Clearance 81 mL/min (70-130); Calcium 8.3 mg/dL (7.8-10.44); Carbon Dioxide 29 mmol/L (23-31); Chloride 101 mmol/L (98-107); Globulin 3.5 g/dL (2.4-3.5); Glucose 125 mg/dL (83-110); Magnesium 2.1 mg/dL (1.6-2.6); Potassium 4.2 mmol/L (3.5-5.1); Protein, Total 5.9 g/dL (5.8-8.1); Sodium 138 mmol/L (136-145)
[2021-03-08 05:15] LABS: Band 20 % (5-11); Eosinophils 3 % (0-10); Lymphocytes 11 % (21-51); MDiff Complete? YES; Monocytes 5 % (0-10); Neutrophil 60 % (42-75); Platelet Morphology Comment Appears Adequate; Polychromasia SLIGHT = 2-3 cells (100X) (0-2/hpf); Reactive Lymphocytes 1 % (0-10)
[2021-03-08] MEDS: Senokot S 8.6-50 MG TAB PO SCH ×2 (09:04→20:55)
[2021-03-08] MEDS: Apixaban 5 MG TAB PO SCH ×2 (09:04→20:55)
[2021-03-08] MEDS: Propofol 1,000 MG/100 ML VIAL IV PRN ×3 (09:04→21:27)
[2021-03-08] MEDS: Famotidine 20 MG TAB PER TUBE SCH ×2 (09:04→20:55)
[2021-03-08] MEDS: Aspirin 325 MG TAB PO SCH (09:04)
[2021-03-08] MEDS: Polyethylene Glycol 3350 17 GM Packet PO SCH (09:05)
[2021-03-08] MEDS: Lorazepam 2 MG/ML VIAL SLOW IVP PRN (09:20)
[2021-03-09 04:36] LABS: Hemoglobin 9.3 g/dL (12.0-16.0); Mean Corpuscular HGB CONC 33.4 g/dL (32.0-36.0); Mean Corpuscular Hemoglobin 31.9 pg (27.0-31.0); Mean Corpuscular Volume 95.7 fL (78.0-98.0); Mean Platelet Volume 7.5 fL (7.4-10.4); Platelet Count 366 thou/uL (130-400); Red Blood Cell (RBC) Count 2.92 mill/uL (4.20-5.40); White Blood Cell (WBC) Count 13.2 thou/uL (4.8-10.8)
[2021-03-09] MEDS: Propofol 1,000 MG/100 ML VIAL IV PRN (04:41)
[2021-03-09 04:48] LABS: ALT (SGPT) 54 U/L (8-55); AST (SGOT) 49 U/L (5-34); Albumin 2.4 g/dL (3.4-4.8); Alkaline Phosphatase 121 U/L (40-110); Anion Gap 11 mmol/L (10-20); BUN (Urea Nitrogen) 18 mg/dL (9.8-20.1); Bilirubin, Total 0.3 mg/dL (0.2-1.2); Calc. Creatinine Clearance 77 mL/min (70-130); Calcium 8.3 mg/dL (7.8-10.44); Carbon Dioxide 30 mmol/L (23-31); Chloride 101 mmol/L (98-107); Globulin 3.1 g/dL (2.4-3.5); Glucose 124 mg/dL (83-110); Potassium 4.1 mmol/L (3.5-5.1); Protein, Total 5.5 g/dL (5.8-8.1); Sodium 138 mmol/L (136-145)
[2021-03-09 06:32] LABS: Band 14 % (5-11); Eosinophils 2 % (0-10); Lymphocytes 17 % (21-51); MDiff Complete? YES; Monocytes 4 % (0-10); Neutrophil 62 % (42-75)
[2021-03-09] MEDS: Aspirin 325 MG TAB PO SCH (08:04)
[2021-03-09] MEDS: Famotidine 20 MG TAB PER TUBE SCH ×2 (08:04→20:02)
[2021-03-09] MEDS: Apixaban 5 MG TAB PO SCH ×2 (08:04→20:02)
[2021-03-09] MEDS: Polyethylene Glycol 3350 17 GM Packet PO SCH (08:05)
[2021-03-09] MEDS: Senokot S 8.6-50 MG TAB PO SCH (08:05)
[2021-03-09 12:07] LABS: Actual Bicarbonate (HCO3v) 30 mEq/L (22-28); Base Excess 6.1 mEq/L (-2.0 to +3.0); Calcium, Ionized (venous) 1.07 mmol/L (1.16-1.32); Chloride (VBG) 101 mmol/L (98-106); Hemoglobin (Hb) 10.5 g/dL (11.7-16.1); Potassium (VBG) 3.63 mmol/L (3.70-5.30); Sodium 135.3 mmol/L (133-146); pH (venous) 7.51 (7.32-7.43)
[2021-03-09] MEDS ORDERED: Lorazepam 2 MG/ML VIAL SLOW IVP PRN (13:45)
[2021-03-09] MEDS ORDERED: Lorazepam 2 MG/ML VIAL ONE (13:46)
[2021-03-10 04:40] LABS: ALT (SGPT) 49 U/L (8-55); AST (SGOT) 40 U/L (5-34); Albumin 2.6 g/dL (3.4-4.8); Alkaline Phosphatase 127 U/L (40-110); Anion Gap 13 mmol/L (10-20); BUN (Urea Nitrogen) 16 mg/dL (9.8-20.1); Bilirubin, Total 0.5 mg/dL (0.2-1.2); Calc. Creatinine Clearance 80 mL/min (70-130); Calcium 8.3 mg/dL (7.8-10.44); Carbon Dioxide 29 mmol/L (23-31); Chloride 104 mmol/L (98-107); Globulin 3.2 g/dL (2.4-3.5); Glucose 103 mg/dL (83-110); Potassium 3.8 mmol/L (3.5-5.1); Protein, Total 5.8 g/dL (5.8-8.1); Sodium 142 mmol/L (136-145)
[2021-03-10 04:44] LABS: Hemoglobin 9.5 g/dL (12.0-16.0); Mean Corpuscular HGB CONC 34.1 g/dL (32.0-36.0); Mean Corpuscular Hemoglobin 32.3 pg (27.0-31.0); Mean Corpuscular Volume 94.7 fL (78.0-98.0); Mean Platelet Volume 7.2 fL (7.4-10.4); Platelet Count 435 thou/uL (130-400); Red Blood Cell (RBC) Count 2.94 mill/uL (4.20-5.40); White Blood Cell (WBC) Count 12.6 thou/uL (4.8-10.8)
[2021-03-10 04:57] LABS: Band 1 % (5-11); Eosinophils 2 % (0-10); Lymphocytes 12 % (21-51); MDiff Complete? YES; Monocytes 11 % (0-10); Neutrophil 74 % (42-75)
[2021-03-10] MEDS: Aspirin 325 MG TAB PO SCH (08:11)
[2021-03-10] MEDS: Famotidine 20 MG TAB PER TUBE SCH ×2 (08:11→22:57)
[2021-03-10] MEDS: Apixaban 5 MG TAB PO SCH ×2 (08:11→22:56)
[2021-03-10] MEDS: Polyethylene Glycol 3350 17 GM Packet PO SCH (08:12)
[2021-03-10] MEDS: hydrALAZINE 20 MG/ML VIAL SLOW IVP PRN (19:52)
[2021-03-10] MEDS ORDERED: Amiodarone 150 MG/3 ML VIAL ONE (21:00)
[2021-03-10] MEDS ORDERED: Furosemide 40 MG/4 ML VIAL ONE (21:24)
[2021-03-10] MEDS ORDERED: Furosemide 40 MG/4 ML VIAL SLOW IVP SCH (21:30)
[2021-03-10] MEDS ORDERED: Diltiazem 125 MG in Sodium Chloride 0.9% 100 ML IVPB SCH (21:30)
[2021-03-10] MEDS ORDERED: Piperacillin/Tazobactam 3.375 GM in Sodium Chloride 0.9% 100 ML IVPB SCH (21:30)
[2021-03-10] MEDS: Metoprolol Tartrate 5 MG/5 ML VIAL IVP PRN (21:35)
[2021-03-10] MEDS ORDERED: Labetalol HCl 100 MG/20 ML VIAL ONE (21:41)
[2021-03-10 21:44] LABS: Anion Gap 17 mmol/L (10-20); BUN (Urea Nitrogen) 17 mg/dL (9.8-20.1); Calc. Creatinine Clearance 81 mL/min (70-130); Calcium 8.6 mg/dL (7.8-10.44); Carbon Dioxide 24 mmol/L (23-31); Chloride 102 mmol/L (98-107); Glucose 101 mg/dL (83-110); Potassium 3.3 mmol/L (3.5-5.1); Sodium 140 mmol/L (136-145)
[2021-03-10 21:47] LABS: Troponin I 0.052 ng/mL (< 0.028)
[2021-03-10 22:00] LABS: #Basophils 0.1 thou/uL (0.0-0.2); #Eosinphils 0.1 thou/uL (0.0-0.7); #Lymphocytes 1.9 thou/uL (1.20-3.40); #Monocytes 1.2 thou/uL (0.11-0.59); #Neutrophils 13.4 thou/uL (1.40-6.50); %Basophils 0.4 % (0.0-1.0); %Eosinophils 0.7 % (0.0-10.0); %Lymphocytes 11.5 % (21.0-51.0); %Monocytes 7.4 % (0.0-10.0); Mean Corpuscular HGB CONC 33.8 g/dL (32.0-36.0); Mean Corpuscular Hemoglobin 31.6 pg (27.0-31.0); Mean Corpuscular Volume 93.6 fL (78.0-98.0); Platelet Count 573 thou/uL (130-400); RBC Distribution Width 12.2 % (11.5-14.5); Red Blood Cell (RBC) Count 3.49 mill/uL (4.20-5.40); White Blood Cell (WBC) Count 16.8 thou/uL (4.8-10.8)
[2021-03-10 22:20] LABS: Magnesium 2.1 mg/dL (1.6-2.6)
[2021-03-10] MEDS ORDERED: Potassium Chloride 40 MEQ in Sodium Chloride 0.9% 250 ML 250 ML IVPB SCH (22:30)
[2021-03-10] MEDS ORDERED: Piperacillin/Tazobactam 3.375 GM VIAL ONE (22:47)
[2021-03-10 23:22] LABS: Lactic Acid 1.2 mmol/L (0.5-2.2)
[2021-03-10] MEDS ORDERED: Digoxin 0.5 MG/2 ML AMP SLOW IVP SCH (23:45)
[2021-03-11] MEDS: Labetalol HCl 100 MG/20 ML VIAL SLOW IVP PRN (01:29)
[2021-03-11] MEDS: Amiodarone 450 MG in Dextrose 5% in Water 250 ML IVPB SCH ×2 (02:01→09:36)
[2021-03-11] MEDS: Metoprolol Tartrate 5 MG/5 ML VIAL IVP PRN ×2 (04:47→21:09)
[2021-03-11 05:03] LABS: Hemoglobin 11.2 g/dL (12.0-16.0); Mean Corpuscular HGB CONC 34.4 g/dL (32.0-36.0); Mean Corpuscular Hemoglobin 32.1 pg (27.0-31.0); Mean Corpuscular Volume 93.4 fL (78.0-98.0); Mean Platelet Volume 7.2 fL (7.4-10.4); Platelet Count 573 thou/uL (130-400); RBC Distribution Width 12.3 % (11.5-14.5); Red Blood Cell (RBC) Count 3.48 mill/uL (4.20-5.40); White Blood Cell (WBC) Count 17.8 thou/uL (4.8-10.8)
[2021-03-11 05:07] LABS: ALT (SGPT) 63 U/L (8-55); AST (SGOT) 51 U/L (5-34); Albumin 3.1 g/dL (3.4-4.8); Alkaline Phosphatase 162 U/L (40-110); Anion Gap 14 mmol/L (10-20); BUN (Urea Nitrogen) 18 mg/dL (9.8-20.1); Bilirubin, Total 0.7 mg/dL (0.2-1.2); Calc. Creatinine Clearance 74 mL/min (70-130); Calcium 8.6 mg/dL (7.8-10.44); Carbon Dioxide 28 mmol/L (23-31); Chloride 100 mmol/L (98-107); Globulin 3.9 g/dL (2.4-3.5); Glucose 123 mg/dL (83-110); Potassium 3.4 mmol/L (3.5-5.1); Sodium 139 mmol/L (136-145)
[2021-03-11 05:11] LABS: Troponin I 0.082 ng/mL (< 0.028)
[2021-03-11] MEDS ORDERED: Potassium Chloride 40 MEQ in Sodium Chloride 0.9% 250 ML 250 ML IVPB SCH (05:45)
[2021-03-11 06:04] LABS: Band 14 % (5-11); Lymphocytes 11 % (21-51); MDiff Complete? YES; Monocytes 9 % (0-10); Neutrophil 66 % (42-75)
[2021-03-11] MEDS: VANCOMYCIN 1.25 GM/250 ML BAG 1.25 GM in Premix Bag 1 BAG IVPB SCH ×3 (06:06→23:22)
[2021-03-11] MEDS: Piperacillin/Tazobactam 3.375 GM in Sodium Chloride 0.9% 100 ML IVPB SCH ×3 (06:34→21:10)
[2021-03-11] MEDS ORDERED: Metoprolol Tartrate 5 MG/5 ML VIAL IVP SCH (08:10)
[2021-03-11] MEDS ORDERED: Furosemide 20 MG/2 ML VIAL SLOW IVP SCH (08:15)
[2021-03-11] MEDS: Famotidine 20 MG TAB PER TUBE SCH ×2 (13:49→21:11)
[2021-03-11] MEDS: Apixaban 5 MG TAB PO SCH (13:49)
[2021-03-11] MEDS: Polyethylene Glycol 3350 17 GM Packet PO SCH (13:49)
[2021-03-11] MEDS: Aspirin 81 mg Enteric Coated Tablet PO SCH (13:49)
[2021-03-11] MEDS ORDERED: Digoxin 0.5 MG/2 ML AMP SLOW IVP SCH (18:45)
[2021-03-11] MEDS: Enoxaparin Sodium 80 MG/0.8 ML SYRINGE SC SCH (21:11)
[2021-03-11] MEDS ORDERED: Polyvinyl Alcohol 1.4%/Povidone 0.6% Opth Drops EA EYE SCH (23:15)
[2021-03-12 04:35] LABS: #Basophils 0.1 thou/uL (0.0-0.2); #Eosinphils 0.4 thou/uL (0.0-0.7); #Monocytes 0.8 thou/uL (0.11-0.59); #Neutrophils 10.8 thou/uL (1.40-6.50); %Basophils 0.6 % (0.0-1.0); %Eosinophils 2.7 % (0.0-10.0); %Monocytes 5.7 % (0.0-10.0); %Neutrophils 77.1 % (42.0-75.0); Hemoglobin 10.6 g/dL (12.0-16.0); Mean Corpuscular HGB CONC 33.9 g/dL (32.0-36.0); Mean Corpuscular Hemoglobin 31.7 pg (27.0-31.0); Mean Corpuscular Volume 93.7 fL (78.0-98.0); Mean Platelet Volume 7.3 fL (7.4-10.4); Platelet Count 584 thou/uL (130-400); RBC Distribution Width 12.4 % (11.5-14.5); Red Blood Cell (RBC) Count 3.33 mill/uL (4.20-5.40)
[2021-03-12 04:41] LABS: Hemoglobin 10.6 g/dL (12.0-16.0); Mean Corpuscular HGB CONC 33.6 g/dL (32.0-36.0); Mean Corpuscular Hemoglobin 31.5 pg (27.0-31.0); Mean Corpuscular Volume 93.8 fL (78.0-98.0); Mean Platelet Volume 7.1 fL (7.4-10.4); Platelet Count 580 thou/uL (130-400); RBC Distribution Width 12.5 % (11.5-14.5); Red Blood Cell (RBC) Count 3.36 mill/uL (4.20-5.40); White Blood Cell (WBC) Count 13.7 thou/uL (4.8-10.8)
[2021-03-12 04:45] LABS: Band 2 % (5-11); Eosinophils 5 % (0-10); Lymphocytes 15 % (21-51); MDiff Complete? YES; Monocytes 3 % (0-10); Neutrophil 74 % (42-75); Platelet Morphology Comment Appears Increased
[2021-03-12 04:58] LABS: ALT (SGPT) 49 U/L (8-55); AST (SGOT) 28 U/L (5-34); Albumin 2.8 g/dL (3.4-4.8); Alkaline Phosphatase 136 U/L (40-110); Anion Gap 14 mmol/L (10-20); BUN (Urea Nitrogen) 25 mg/dL (9.8-20.1); Bilirubin, Total 0.7 mg/dL (0.2-1.2); Calc. Creatinine Clearance 63 mL/min (70-130); Calcium 8.4 mg/dL (7.8-10.44); Carbon Dioxide 25 mmol/L (23-31); Chloride 102 mmol/L (98-107); Globulin 3.4 g/dL (2.4-3.5); Glucose 113 mg/dL (83-110); Potassium 3.4 mmol/L (3.5-5.1); Protein, Total 6.2 g/dL (5.8-8.1); Sodium 138 mmol/L (136-145)
[2021-03-12] MEDS: Piperacillin/Tazobactam 3.375 GM in Sodium Chloride 0.9% 100 ML IVPB SCH ×2 (05:56→14:11)
[2021-03-12] MEDS ORDERED: Metoprolol Tartrate 5 MG/5 ML VIAL IVP SCH (06:00)
[2021-03-12] MEDS ORDERED: Magnesium 2 GM/50 ML 2 GM in Premix Bag 1 BAG IVPB SCH (06:30)
[2021-03-12] MEDS: Polyvinyl Alcohol 1.4%/Povidone 0.6% Opth Drops EA EYE SCH ×2 (06:37→20:47)
[2021-03-12] MEDS ORDERED: Potassium Bicarbonate/Cit Ac 20 MEQ TAB PER TUBE SCH (06:45)
[2021-03-12] MEDS: Famotidine 20 MG TAB PER TUBE SCH (09:14)
[2021-03-12] MEDS: Aspirin 81 mg Enteric Coated Tablet PO SCH (09:14)
[2021-03-12] MEDS: Polyethylene Glycol 3350 17 GM Packet PO SCH (09:14)
[2021-03-12] MEDS: Enoxaparin Sodium 80 MG/0.8 ML SYRINGE SC SCH (09:15)
[2021-03-12] MEDS: VANCOMYCIN 1.25 GM/250 ML BAG 1.25 GM in Premix Bag 1 BAG IVPB SCH (09:16)
[2021-03-12] MEDS: Carvedilol 6.25 MG TAB PO SCH (17:16)
[2021-03-12] MEDS: Apixaban 5 MG TAB PO SCH (20:45)
[2021-03-12] MEDS: Amoxicillin/Potassium Clav 875 MG TAB PO SCH (20:45)
[2021-03-13 03:42] LABS: Hemoglobin 10.5 g/dL (12.0-16.0); Mean Corpuscular Hemoglobin 31.6 pg (27.0-31.0); Mean Corpuscular Volume 93.1 fL (78.0-98.0); Mean Platelet Volume 6.7 fL (7.4-10.4); Platelet Count 640 thou/uL (130-400); RBC Distribution Width 12.3 % (11.5-14.5); Red Blood Cell (RBC) Count 3.34 mill/uL (4.20-5.40); White Blood Cell (WBC) Count 11.7 thou/uL (4.8-10.8)
[2021-03-13 03:56] LABS: ALT (SGPT) 40 U/L (8-55); AST (SGOT) 24 U/L (5-34); Albumin 2.8 g/dL (3.4-4.8); Alkaline Phosphatase 144 U/L (40-110); Anion Gap 14 mmol/L (10-20); BUN (Urea Nitrogen) 27 mg/dL (9.8-20.1); Bilirubin, Total 0.6 mg/dL (0.2-1.2); Calc. Creatinine Clearance 64 mL/min (70-130); Calcium 8.2 mg/dL (7.8-10.44); Carbon Dioxide 25 mmol/L (23-31); Chloride 103 mmol/L (98-107); Globulin 3.3 g/dL (2.4-3.5); Glucose 103 mg/dL (83-110); Potassium 3.1 mmol/L (3.5-5.1); Protein, Total 6.1 g/dL (5.8-8.1); Sodium 139 mmol/L (136-145)
[2021-03-13 04:32] LABS: Band 6 % (5-11); Eosinophils 3 % (0-10); Lymphocytes 9 % (21-51); MDiff Complete? YES; Monocytes 7 % (0-10); Neutrophil 71 % (42-75); Platelet Morphology Comment Appears Increased; RBC Morphology Normal; Reactive Lymphocytes 2 % (0-10)
[2021-03-13] MEDS: Amiodarone 450 MG in Dextrose 5% in Water 250 ML IVPB SCH ×2 (06:05→18:21)
[2021-03-13] MEDS ORDERED: Potassium Chloride 20 MEQ TAB PO SCH (06:30)
[2021-03-13] MEDS: Furosemide 100 MG/10 ML VIAL SLOW IVP SCH (09:53)
[2021-03-13] MEDS: Apixaban 5 MG TAB PO SCH ×2 (09:55→20:21)
[2021-03-13] MEDS: Amoxicillin/Potassium Clav 875 MG TAB PO SCH ×2 (09:55→20:21)
[2021-03-13] MEDS: Aspirin 81 mg Enteric Coated Tablet PO SCH (09:55)
[2021-03-13] MEDS: Carvedilol 6.25 MG TAB PO SCH ×2 (09:56→18:15)
[2021-03-13] MEDS: Polyethylene Glycol 3350 17 GM Packet PO SCH (09:56)
[2021-03-13] MEDS ORDERED: Carvedilol 6.25 MG TAB PO SCH (13:45)
[2021-03-13] MEDS: Polyvinyl Alcohol 1.4%/Povidone 0.6% Opth Drops EA EYE SCH ×2 (14:52→20:21)
[2021-03-14 04:34] LABS: Band 4 % (5-11); Eosinophils 2 % (0-10); Hemoglobin 11.1 g/dL (12.0-16.0); Lymphocytes 25 % (21-51); MDiff Complete? YES; Mean Corpuscular HGB CONC 33.8 g/dL (32.0-36.0); Mean Corpuscular Hemoglobin 31.1 pg (27.0-31.0); Mean Corpuscular Volume 92.2 fL (78.0-98.0); Mean Platelet Volume 7.2 fL (7.4-10.4); Monocytes 7 % (0-10); Neutrophil 62 % (42-75); Platelet Count 732 thou/uL (130-400); Platelet Morphology Comment Appears Increased; RBC Distribution Width 12.5 % (11.5-14.5); Red Blood Cell (RBC) Count 3.57 mill/uL (4.20-5.40); White Blood Cell (WBC) Count 11.8 thou/uL (4.8-10.8)
[2021-03-14 04:48] LABS: ALT (SGPT) 51 U/L (8-55); AST (SGOT) 42 U/L (5-34); Albumin 2.9 g/dL (3.4-4.8); Alkaline Phosphatase 156 U/L (40-110); Anion Gap 15 mmol/L (10-20); BUN (Urea Nitrogen) 27 mg/dL (9.8-20.1); Bilirubin, Total 0.5 mg/dL (0.2-1.2); Calc. Creatinine Clearance 63 mL/min (70-130); Calcium 8.6 mg/dL (7.8-10.44); Carbon Dioxide 25 mmol/L (23-31); Chloride 100 mmol/L (98-107); Globulin 3.6 g/dL (2.4-3.5); Glucose 103 mg/dL (83-110); Potassium 3.1 mmol/L (3.5-5.1); Protein, Total 6.5 g/dL (5.8-8.1); Sodium 137 mmol/L (136-145)
[2021-03-14] MEDS: Carvedilol 6.25 MG TAB PO SCH (08:35)
[2021-03-14] MEDS: Amoxicillin/Potassium Clav 875 MG TAB PO SCH ×2 (08:35→20:21)
[2021-03-14] MEDS: Apixaban 5 MG TAB PO SCH ×2 (08:35→20:21)
[2021-03-14] MEDS: Polyethylene Glycol 3350 17 GM Packet PO SCH (08:36)
[2021-03-14] MEDS: Furosemide 100 MG/10 ML VIAL SLOW IVP SCH (08:36)
[2021-03-14] MEDS: Aspirin 81 mg Enteric Coated Tablet PO SCH (08:36)
[2021-03-14] MEDS: Amiodarone 450 MG in Dextrose 5% in Water 250 ML IVPB SCH (08:36)
[2021-03-14] MEDS: Carvedilol 25 MG TAB PO SCH ×2 (08:57→16:25)
[2021-03-14] MEDS: Polyvinyl Alcohol 1.4%/Povidone 0.6% Opth Drops EA EYE SCH ×2 (10:12→20:21)
[2021-03-14] MEDS ORDERED: Potassium Chloride 20 MEQ TAB PO SCH ×2 (14:15→17:00)
[2021-03-14 18:16] LABS: Potassium 3.1 mmol/L (3.5-5.1)
[2021-03-15] MEDS: Amiodarone 450 MG in Dextrose 5% in Water 250 ML IVPB SCH (01:54)
[2021-03-15 05:07] LABS: ALT (SGPT) 77 U/L (8-55); AST (SGOT) 58 U/L (5-34); Alkaline Phosphatase 152 U/L (40-110); Anion Gap 12 mmol/L (10-20); BUN (Urea Nitrogen) 24 mg/dL (9.8-20.1); Bilirubin, Total 0.5 mg/dL (0.2-1.2); Calc. Creatinine Clearance 63 mL/min (70-130); Calcium 8.7 mg/dL (7.8-10.44); Carbon Dioxide 29 mmol/L (23-31); Chloride 97 mmol/L (98-107); Globulin 3.6 g/dL (2.4-3.5); Glucose 115 mg/dL (83-110); Potassium 3.2 mmol/L (3.5-5.1); Protein, Total 6.6 g/dL (5.8-8.1); Sodium 135 mmol/L (136-145)
[2021-03-15 05:14] LABS: Band 1 % (5-11); Eosinophils 2 % (0-10); Hemoglobin 11.9 g/dL (12.0-16.0); Lymphocytes 13 % (21-51); MDiff Complete? YES; Mean Corpuscular HGB CONC 34.9 g/dL (32.0-36.0); Mean Corpuscular Hemoglobin 32.1 pg (27.0-31.0); Monocytes 9 % (0-10); Neutrophil 73 % (42-75); Platelet Count 672 thou/uL (130-400); Platelet Morphology Comment Appears Increased; RBC Distribution Width 12.7 % (11.5-14.5); RBC Morphology Normal; Reactive Lymphocytes 2 % (0-10); Red Blood Cell (RBC) Count 3.72 mill/uL (4.20-5.40); White Blood Cell (WBC) Count 14.4 thou/uL (4.8-10.8)
[2021-03-15] MEDS: Amoxicillin/Potassium Clav 875 MG TAB PO SCH ×2 (08:35→20:36)
[2021-03-15] MEDS: Carvedilol 25 MG TAB PO SCH ×2 (08:35→17:16)
[2021-03-15] MEDS: Aspirin 81 mg Enteric Coated Tablet PO SCH (08:35)
[2021-03-15] MEDS: Apixaban 5 MG TAB PO SCH ×2 (08:35→20:36)
[2021-03-15] MEDS: Polyethylene Glycol 3350 17 GM Packet PO SCH (08:35)
[2021-03-15] MEDS ORDERED: Potassium Chloride 20 MEQ TAB PO SCH ×2 (08:45→17:00)
[2021-03-15] MEDS: Polyvinyl Alcohol 1.4%/Povidone 0.6% Opth Drops EA EYE SCH ×2 (08:49→20:36)
[2021-03-15] MEDS: Amiodarone 200 MG TAB PO SCH ×2 (15:40→20:35)
[2021-03-16 04:46] LABS: ALT (SGPT) 74 U/L (8-55); AST (SGOT) 41 U/L (5-34); Alkaline Phosphatase 141 U/L (40-110); Anion Gap 15 mmol/L (10-20); BUN (Urea Nitrogen) 22 mg/dL (9.8-20.1); Band 2 % (5-11); Bilirubin, Total 0.6 mg/dL (0.2-1.2); Calc. Creatinine Clearance 55 mL/min (70-130); Calcium 8.7 mg/dL (7.8-10.44); Carbon Dioxide 25 mmol/L (23-31); Chloride 100 mmol/L (98-107); Globulin 3.6 g/dL (2.4-3.5); Glucose 102 mg/dL (83-110); Hemoglobin 11.7 g/dL (12.0-16.0); Hypochromia SLIGHT = 6-15 cells (100X) (0-5/hpf); Lymphocytes 11 % (21-51); MDiff Complete? YES; Magnesium 2.1 mg/dL (1.6-2.6); Mean Corpuscular HGB CONC 33.3 g/dL (32.0-36.0); Mean Corpuscular Hemoglobin 30.9 pg (27.0-31.0); Mean Corpuscular Volume 92.7 fL (78.0-98.0); Mean Platelet Volume 7.5 fL (7.4-10.4); Monocytes 9 % (0-10); Neutrophil 78 % (42-75); Platelet Count 651 thou/uL (130-400); Platelet Morphology Comment Appears Increased; Potassium 4.2 mmol/L (3.5-5.1); Protein, Total 6.6 g/dL (5.8-8.1); Red Blood Cell (RBC) Count 3.78 mill/uL (4.20-5.40); Sodium 136 mmol/L (136-145); White Blood Cell (WBC) Count 18.6 thou/uL (4.8-10.8)
[2021-03-16] MEDS: Polyethylene Glycol 3350 17 GM Packet PO SCH (10:29)
[2021-03-16] MEDS: Apixaban 5 MG TAB PO SCH ×2 (10:41→21:54)
[2021-03-16] MEDS: Aspirin 81 mg Enteric Coated Tablet PO SCH (10:41)
[2021-03-16] MEDS: Amiodarone 200 MG TAB PO SCH ×3 (10:41→21:54)
[2021-03-16] MEDS: VANCOMYCIN 1.25 GM/250 ML BAG 1.25 GM in Premix Bag 1 BAG IVPB SCH ×2 (10:41→21:54)
[2021-03-16] MEDS: Carvedilol 25 MG TAB PO SCH ×2 (10:42→17:40)
[2021-03-16] MEDS: Polyvinyl Alcohol 1.4%/Povidone 0.6% Opth Drops EA EYE SCH ×2 (10:43→23:00)
[2021-03-16 12:55] LABS: Bilirubin Negative (Negative); Blood, Urine 2+ (Negative); Clarity Clear (Clear); Glucose, Urine (Dipstick) Normal (Negative); Ketone, Urine Negative (Negative); Leukocyte 500 Leu/uL (Negative); Nitrite Negative (Negative); Protein, Urine (Dipstick) 30 mg/dL (Neg-Trace); Specific Gravity, Urine 1.027 (1.002-1.036); Squamous Epithelial 0-3 HPF (0-3); pH, Urine 6.5 (5.0-9.0)
[2021-03-16 13:06] LABS: Bacteria/HPF Rare-Few HPF (None Seen)
[2021-03-16 13:07] LABS: Urine Culture Reflex Yes Yes
[2021-03-16] MEDS: Piperacillin/Tazobactam 3.375 GM in Sodium Chloride 0.9% 100 ML IVPB SCH ×2 (14:14→21:51)
[2021-03-17 05:17] LABS: Eosinophils 2 % (0-10); Hemoglobin 11.1 g/dL (12.0-16.0); Lymphocytes 17 % (21-51); MDiff Complete? YES; Mean Corpuscular HGB CONC 33.1 g/dL (32.0-36.0); Mean Corpuscular Hemoglobin 30.8 pg (27.0-31.0); Mean Corpuscular Volume 93.1 fL (78.0-98.0); Mean Platelet Volume 7.4 fL (7.4-10.4); Monocytes 4 % (0-10); Myelocyte 1 % (0-0); Neutrophil 73 % (42-75); Platelet Count 660 thou/uL (130-400); Platelet Morphology Comment Appears Increased; RBC Distribution Width 13.3 % (11.5-14.5); RBC Morphology Normal; Reactive Lymphocytes 3 % (0-10); Red Blood Cell (RBC) Count 3.59 mill/uL (4.20-5.40); White Blood Cell (WBC) Count 15.1 thou/uL (4.8-10.8)
[2021-03-17 05:37] LABS: ALT (SGPT) 56 U/L (8-55); AST (SGOT) 26 U/L (5-34); Albumin 3.1 g/dL (3.4-4.8); Alkaline Phosphatase 135 U/L (40-110); Anion Gap 13 mmol/L (10-20); BUN (Urea Nitrogen) 19 mg/dL (9.8-20.1); Bilirubin, Total 0.6 mg/dL (0.2-1.2); Calc. Creatinine Clearance 53 mL/min (70-130); Calcium 8.6 mg/dL (7.8-10.44); Carbon Dioxide 25 mmol/L (23-31); Chloride 100 mmol/L (98-107); Globulin 3.4 g/dL (2.4-3.5); Glucose 105 mg/dL (83-110); Potassium 3.8 mmol/L (3.5-5.1); Protein, Total 6.5 g/dL (5.8-8.1); Sodium 134 mmol/L (136-145)
[2021-03-17] MEDS: Piperacillin/Tazobactam 3.375 GM in Sodium Chloride 0.9% 100 ML IVPB SCH ×4 (06:39→23:12)
[2021-03-17] MEDS: Apixaban 5 MG TAB PO SCH ×2 (08:32→21:44)
[2021-03-17] MEDS: Carvedilol 25 MG TAB PO SCH ×2 (08:32→17:06)
[2021-03-17] MEDS: Aspirin 81 mg Enteric Coated Tablet PO SCH (08:33)
[2021-03-17] MEDS: Amiodarone 200 MG TAB PO SCH ×3 (08:33→21:44)
[2021-03-17] MEDS: Polyethylene Glycol 3350 17 GM Packet PO SCH (08:33)
[2021-03-17] MEDS: Polyvinyl Alcohol 1.4%/Povidone 0.6% Opth Drops EA EYE SCH ×2 (10:41→21:44)
[2021-03-17] MEDS: VANCOMYCIN 1.25 GM/250 ML BAG 1.25 GM in Premix Bag 1 BAG IVPB SCH ×2 (11:43→20:50)
[2021-03-18 04:58] LABS: ALT (SGPT) 41 U/L (8-55); AST (SGOT) 19 U/L (5-34); Alkaline Phosphatase 125 U/L (40-110); Anion Gap 14 mmol/L (10-20); BUN (Urea Nitrogen) 14 mg/dL (9.8-20.1); Bilirubin, Total 0.5 mg/dL (0.2-1.2); Calc. Creatinine Clearance 52 mL/min (70-130); Calcium 8.5 mg/dL (7.8-10.44); Carbon Dioxide 22 mmol/L (23-31); Chloride 105 mmol/L (98-107); Globulin 3.3 g/dL (2.4-3.5); Glucose 111 mg/dL (83-110); Protein, Total 6.3 g/dL (5.8-8.1); Sodium 137 mmol/L (136-145)
[2021-03-18 05:02] LABS: Band 1 % (5-11); Eosinophils 4 % (0-10); Hemoglobin 10.5 g/dL (12.0-16.0); Hypochromia SLIGHT = 6-15 cells (100X) (0-5/hpf); Lymphocytes 23 % (21-51); MDiff Complete? YES; Mean Corpuscular HGB CONC 32.5 g/dL (32.0-36.0); Mean Corpuscular Hemoglobin 30.3 pg (27.0-31.0); Mean Corpuscular Volume 93.2 fL (78.0-98.0); Mean Platelet Volume 7.2 fL (7.4-10.4); Monocytes 5 % (0-10); Neutrophil 67 % (42-75); Platelet Count 609 thou/uL (130-400); Platelet Morphology Comment Appears Increased; RBC Distribution Width 13.2 % (11.5-14.5); Red Blood Cell (RBC) Count 3.47 mill/uL (4.20-5.40); White Blood Cell (WBC) Count 13.3 thou/uL (4.8-10.8)
[2021-03-18] MEDS: Piperacillin/Tazobactam 3.375 GM in Sodium Chloride 0.9% 100 ML IVPB SCH (05:58)
[2021-03-18] MEDS: Polyethylene Glycol 3350 17 GM Packet PO SCH (08:21)
[2021-03-18] MEDS: Apixaban 5 MG TAB PO SCH ×2 (08:22→22:13)
[2021-03-18] MEDS: Amiodarone 200 MG TAB PO SCH ×3 (08:22→22:13)
[2021-03-18] MEDS: Carvedilol 25 MG TAB PO SCH ×2 (08:22→16:03)
[2021-03-18] MEDS: Aspirin 81 mg Enteric Coated Tablet PO SCH (08:22)
[2021-03-18] MEDS: Polyvinyl Alcohol 1.4%/Povidone 0.6% Opth Drops EA EYE SCH ×2 (09:23→22:13)
[2021-03-18] MEDS ORDERED: Ciprofloxacin 500 MG TAB PO SCH (20:00)
[2021-03-18] MEDS ORDERED: Furosemide 40 MG/4 ML VIAL ONE (23:19)
[2021-03-18] MEDS ORDERED: Nitroglycerin 2% Ointment 1 INCH/1 GM Packet ONE (23:22)
[2021-03-18 23:31] LABS: Actual Bicarbonate (HCO3a) 24.5 mEq/L (22-28); Calcium, Ionized (arterial) 1.25 mmol/L (1.12-1.30); Carboxyhemoglobin (COHb) 0.4 gm% (0.0-3.0); Hemoglobin (Hb) 12.4 g/dL (12.0-16.0); Potassium - ABG Lab 4.51 mmol/L (3.70-5.30)
[2021-03-18 23:51] LABS: Hemoglobin 11.9 g/dL (12.0-16.0); Mean Corpuscular HGB CONC 32.6 g/dL (32.0-36.0); Mean Corpuscular Hemoglobin 30.9 pg (27.0-31.0); Mean Corpuscular Volume 94.7 fL (78.0-98.0); Mean Platelet Volume 7.2 fL (7.4-10.4); Platelet Count 794 thou/uL (130-400); RBC Distribution Width 13.4 % (11.5-14.5); Red Blood Cell (RBC) Count 3.85 mill/uL (4.20-5.40); White Blood Cell (WBC) Count 18.4 thou/uL (4.8-10.8)
[2021-03-18 23:54] LABS: INR-International Normal Ratio 1.2; PTT 33.6 sec (22.9-36.1); Prothrombin Time 15.6 sec (12.0-14.7)
[2021-03-18 23:55] LABS: Anion Gap 16 mmol/L (10-20); BUN (Urea Nitrogen) 14 mg/dL (9.8-20.1); Calc. Creatinine Clearance 48 mL/min (70-130); Carbon Dioxide 23 mmol/L (23-31); Chloride 102 mmol/L (98-107); Glucose 222 mg/dL (83-110); Potassium 4.6 mmol/L (3.5-5.1); Sodium 136 mmol/L (136-145)
[2021-03-19 00:01] LABS: Lactic Acid 3.3 mmol/L (0.5-2.2); Troponin I 0.017 ng/mL (< 0.028)
[2021-03-19] MEDS ORDERED: Nitroglycerin 50 MG/250 ML BOT 250 ML ONE (00:07)
[2021-03-19 00:23] LABS: Band 1 % (5-11); Eosinophils 5 % (0-10); Lymphocytes 26 % (21-51); MDiff Complete? YES; Monocytes 10 % (0-10); Neutrophil 49 % (42-75); Platelet Morphology Comment Appears Increased; RBC Morphology Normal; Reactive Lymphocytes 8 % (0-10); Small Platelets SLIGHT
[2021-03-19] MEDS ORDERED: MEROPENEM 1 GM/50 ML 1 GM in Premix Bag 1 BAG IVPB SCH ×2 (00:30→14:00)
[2021-03-19] MEDS ORDERED: Meropenem 1 GM in Sodium Chloride 0.9% 100 ML IVPB SCH ×2 (00:30→14:00)
[2021-03-19 00:36] LABS: CO2 Tension 84.6 mmHg (35.0-45.0); O2 Tension (PaO2), arterial 38.6 mmHg (> 70.0); pH, Arterial 7.08 (7.35-7.45)
[2021-03-19 00:37] LABS: Puncture Site RBA
[2021-03-19 00:52] LABS: Vancomycin, Random 18.6 ug/mL (See Comment)
[2021-03-19 04:13] LABS: ALT (SGPT) 32 U/L (8-55); AST (SGOT) 16 U/L (5-34); Albumin 2.9 g/dL (3.4-4.8); Alkaline Phosphatase 127 U/L (40-110); Anion Gap 13 mmol/L (10-20); BUN (Urea Nitrogen) 14 mg/dL (9.8-20.1); Bilirubin, Total 0.4 mg/dL (0.2-1.2); Calc. Creatinine Clearance 49 mL/min (70-130); Calcium 8.3 mg/dL (7.8-10.44); Carbon Dioxide 23 mmol/L (23-31); Chloride 104 mmol/L (98-107); Globulin 3.5 g/dL (2.4-3.5); Glucose 129 mg/dL (83-110); Protein, Total 6.4 g/dL (5.8-8.1); Sodium 136 mmol/L (136-145)
[2021-03-19 04:49] LABS: Band 1 % (5-11); Eosinophils 1 % (0-10); Hemoglobin 10.5 g/dL (12.0-16.0); Lymphocytes 9 % (21-51); MDiff Complete? YES; Mean Corpuscular HGB CONC 33.3 g/dL (32.0-36.0); Mean Platelet Volume 7.3 fL (7.4-10.4); Monocytes 7 % (0-10); Neutrophil 77 % (42-75); Platelet Count 631 thou/uL (130-400); Platelet Morphology Comment Appears Increased; RBC Distribution Width 13.4 % (11.5-14.5); RBC Morphology Normal; Reactive Lymphocytes 5 % (0-10); Small Platelets SLIGHT; White Blood Cell (WBC) Count 19.2 thou/uL (4.8-10.8)
[2021-03-19] MEDS ORDERED: VANCOMYCIN 1.25 GM/250 ML BAG 1.25 GM in Premix Bag 1 BAG IVPB SCH (05:00)
[2021-03-19] MEDS ORDERED: Meropenem 2 GM in Admixture Fee 1 EACH IVPB SCH (06:00)
[2021-03-19] MEDS ORDERED: Sulfameth/Trimethoprim DS 800-160mg TAB PO SCH (09:00)
[2021-03-19] MEDS: Apixaban 5 MG TAB PO SCH ×2 (12:10→20:13)
[2021-03-19] MEDS: Amiodarone 200 MG TAB PO SCH ×3 (12:10→20:13)
[2021-03-19] MEDS: Polyethylene Glycol 3350 17 GM Packet PO SCH (12:10)
[2021-03-19] MEDS: Aspirin 81 mg Enteric Coated Tablet PO SCH (12:10)
[2021-03-19] MEDS: Carvedilol 25 MG TAB PO SCH ×2 (12:10→18:49)
[2021-03-19] MEDS: Polyvinyl Alcohol 1.4%/Povidone 0.6% Opth Drops EA EYE SCH ×2 (12:11→22:04)
[2021-03-19] MEDS ORDERED: Furosemide 40 MG/4 ML VIAL SLOW IVP SCH ×2 (15:15→21:00)
[2021-03-19] MEDS: CEFEPIME HCL IN DEXTROSE 5 % 1 GM in Premix Bag 1 BAG IVPB SCH (20:12)
[2021-03-20 04:15] LABS: Vancomycin, Random 21.8 ug/mL (See Comment)
[2021-03-20 04:23] LABS: ALT (SGPT) 28 U/L (8-55); AST (SGOT) 19 U/L (5-34); Albumin 3.1 g/dL (3.4-4.8); Alkaline Phosphatase 128 U/L (40-110); Anion Gap 13 mmol/L (10-20); BUN (Urea Nitrogen) 17 mg/dL (9.8-20.1); Bilirubin, Total 0.4 mg/dL (0.2-1.2); Calc. Creatinine Clearance 46 mL/min (70-130); Calcium 8.9 mg/dL (7.8-10.44); Carbon Dioxide 28 mmol/L (23-31); Chloride 101 mmol/L (98-107); Globulin 3.6 g/dL (2.4-3.5); Glucose 104 mg/dL (83-110); Potassium 3.6 mmol/L (3.5-5.1); Protein, Total 6.7 g/dL (5.8-8.1); Sodium 138 mmol/L (136-145)
[2021-03-20 04:41] LABS: Band 8 % (5-11); Hemoglobin 10.1 g/dL (12.0-16.0); Lymphocytes 21 % (21-51); MDiff Complete? YES; Mean Corpuscular HGB CONC 32.5 g/dL (32.0-36.0); Mean Corpuscular Hemoglobin 30.2 pg (27.0-31.0); Mean Corpuscular Volume 93.2 fL (78.0-98.0); Mean Platelet Volume 7.4 fL (7.4-10.4); Monocytes 8 % (0-10); Myelocyte 1 % (0-0); Neutrophil 59 % (42-75); Platelet Count 646 thou/uL (130-400); RBC Distribution Width 13.3 % (11.5-14.5); Red Blood Cell (RBC) Count 3.32 mill/uL (4.20-5.40)
[2021-03-20] MEDS: Furosemide 40 MG/4 ML VIAL SLOW IVP SCH ×2 (06:21→16:21)
[2021-03-20] MEDS: Apixaban 5 MG TAB PO SCH ×2 (09:53→20:47)
[2021-03-20] MEDS: Carvedilol 25 MG TAB PO SCH ×2 (09:53→16:22)
[2021-03-20] MEDS: Amiodarone 200 MG TAB PO SCH ×3 (09:53→20:47)
[2021-03-20] MEDS: Polyethylene Glycol 3350 17 GM Packet PO SCH (09:54)
[2021-03-20] MEDS: Aspirin 81 mg Enteric Coated Tablet PO SCH (09:54)
[2021-03-20] MEDS: CEFEPIME HCL IN DEXTROSE 5 % 1 GM in Premix Bag 1 BAG IVPB SCH ×2 (09:54→20:47)
[2021-03-20] MEDS: Polyvinyl Alcohol 1.4%/Povidone 0.6% Opth Drops EA EYE SCH ×2 (09:54→20:48)
[2021-03-20 10:43] LABS: SARS-CoV-2 PCR by NAA Not Detected (NotDetected)
[2021-03-21] MEDS: Furosemide 40 MG/4 ML VIAL SLOW IVP SCH (05:04)
[2021-03-21 05:36] LABS: Hemoglobin 10.1 g/dL (12.0-16.0); Mean Corpuscular HGB CONC 34.1 g/dL (32.0-36.0); Mean Corpuscular Hemoglobin 31.7 pg (27.0-31.0); Mean Platelet Volume 7.4 fL (7.4-10.4); Platelet Count 599 thou/uL (130-400); RBC Distribution Width 13.2 % (11.5-14.5); Red Blood Cell (RBC) Count 3.18 mill/uL (4.20-5.40); White Blood Cell (WBC) Count 11.4 thou/uL (4.8-10.8)
[2021-03-21 05:56] LABS: ALT (SGPT) 25 U/L (8-55); AST (SGOT) 15 U/L (5-34); Alkaline Phosphatase 120 U/L (40-110); Anion Gap 12 mmol/L (10-20); BUN (Urea Nitrogen) 23 mg/dL (9.8-20.1); Bilirubin, Total 0.5 mg/dL (0.2-1.2); Calc. Creatinine Clearance 45 mL/min (70-130); Calcium 8.7 mg/dL (7.8-10.44); Carbon Dioxide 31 mmol/L (23-31); Chloride 96 mmol/L (98-107); Globulin 3.4 g/dL (2.4-3.5); Glucose 114 mg/dL (83-110); Potassium 3.2 mmol/L (3.5-5.1); Protein, Total 6.4 g/dL (5.8-8.1); Sodium 136 mmol/L (136-145)
[2021-03-21 06:36] LABS: Band 2 % (5-11); Eosinophils 3 % (0-10); Lymphocytes 19 % (21-51); MDiff Complete? YES; Monocytes 9 % (0-10); Neutrophil 67 % (42-75); Platelet Morphology Comment Appears Increased
[2021-03-21] MEDS: Aspirin 81 mg Enteric Coated Tablet PO SCH (10:02)
[2021-03-21] MEDS: Carvedilol 25 MG TAB PO SCH ×2 (10:02→18:14)
[2021-03-21] MEDS: CEFEPIME HCL IN DEXTROSE 5 % 1 GM in Premix Bag 1 BAG IVPB SCH ×2 (10:02→21:17)
[2021-03-21] MEDS: Amiodarone 200 MG TAB PO SCH ×3 (10:02→21:16)
[2021-03-21] MEDS: Apixaban 5 MG TAB PO SCH ×2 (10:02→21:16)
[2021-03-21] MEDS: Polyvinyl Alcohol 1.4%/Povidone 0.6% Opth Drops EA EYE SCH ×2 (10:03→21:17)
[2021-03-21] MEDS: Polyethylene Glycol 3350 17 GM Packet PO SCH (10:03)
[2021-03-22 04:07] LABS: ALT (SGPT) 25 U/L (8-55); AST (SGOT) 19 U/L (5-34); Albumin 3.2 g/dL (3.4-4.8); Alkaline Phosphatase 120 U/L (40-110); Anion Gap 14 mmol/L (10-20); BUN (Urea Nitrogen) 21 mg/dL (9.8-20.1); Bilirubin, Total 0.5 mg/dL (0.2-1.2); Calc. Creatinine Clearance 48 mL/min (70-130); Calcium 9.1 mg/dL (7.8-10.44); Carbon Dioxide 33 mmol/L (23-31); Chloride 93 mmol/L (98-107); Globulin 3.5 g/dL (2.4-3.5); Glucose 117 mg/dL (83-110); Potassium 3.6 mmol/L (3.5-5.1); Protein, Total 6.7 g/dL (5.8-8.1); Sodium 136 mmol/L (136-145)
[2021-03-22 05:21] LABS: Band 3 % (5-11); Eosinophils 7 % (0-10); Hemoglobin 10.6 g/dL (12.0-16.0); Lymphocytes 31 % (21-51); MDiff Complete? YES; Mean Corpuscular HGB CONC 33.8 g/dL (32.0-36.0); Mean Corpuscular Hemoglobin 31.3 pg (27.0-31.0); Mean Corpuscular Volume 92.6 fL (78.0-98.0); Mean Platelet Volume 7.2 fL (7.4-10.4); Monocytes 4 % (0-10); Neutrophil 55 % (42-75); Platelet Count 578 thou/uL (130-400); White Blood Cell (WBC) Count 10.6 thou/uL (4.8-10.8)
[2021-03-22] MEDS: Aspirin 81 mg Enteric Coated Tablet PO SCH (09:09)
[2021-03-22] MEDS: Carvedilol 25 MG TAB PO SCH ×2 (09:09→16:57)
[2021-03-22] MEDS: Apixaban 5 MG TAB PO SCH ×2 (09:09→21:23)
[2021-03-22] MEDS: Amiodarone 200 MG TAB PO SCH ×3 (09:09→21:23)
[2021-03-22] MEDS: Polyvinyl Alcohol 1.4%/Povidone 0.6% Opth Drops EA EYE SCH ×2 (09:10→21:24)
[2021-03-22] MEDS: Polyethylene Glycol 3350 17 GM Packet PO SCH (09:10)
[2021-03-22] MEDS: CEFEPIME HCL IN DEXTROSE 5 % 1 GM in Premix Bag 1 BAG IVPB SCH ×2 (09:10→21:24)
[2021-03-23 04:36] LABS: Hemoglobin 11.1 g/dL (12.0-16.0); Mean Corpuscular HGB CONC 34.7 g/dL (32.0-36.0); Mean Corpuscular Hemoglobin 32.5 pg (27.0-31.0); Mean Corpuscular Volume 93.7 fL (78.0-98.0); Mean Platelet Volume 7.6 fL (7.4-10.4); Platelet Count 599 thou/uL (130-400); RBC Distribution Width 13.3 % (11.5-14.5); Red Blood Cell (RBC) Count 3.42 mill/uL (4.20-5.40)
[2021-03-23 04:47] LABS: ALT (SGPT) 23 U/L (8-55); AST (SGOT) 17 U/L (5-34); Albumin 3.2 g/dL (3.4-4.8); Alkaline Phosphatase 123 U/L (40-110); Anion Gap 12 mmol/L (10-20); BUN (Urea Nitrogen) 20 mg/dL (9.8-20.1); Bilirubin, Total 0.4 mg/dL (0.2-1.2); Calc. Creatinine Clearance 49 mL/min (70-130); Calcium 9.1 mg/dL (7.8-10.44); Carbon Dioxide 33 mmol/L (23-31); Chloride 93 mmol/L (98-107); Globulin 3.6 g/dL (2.4-3.5); Glucose 108 mg/dL (83-110); Potassium 3.5 mmol/L (3.5-5.1); Protein, Total 6.8 g/dL (5.8-8.1); Sodium 134 mmol/L (136-145)
[2021-03-23 05:19] LABS: Band 2 % (5-11); Eosinophils 4 % (0-10); Lymphocytes 24 % (21-51); MDiff Complete? YES; Monocytes 5 % (0-10); Neutrophil 65 % (42-75); Platelet Morphology Comment Appears Increased
[2021-03-23] MEDS: Polyethylene Glycol 3350 17 GM Packet PO SCH (08:17)
[2021-03-23] MEDS: CEFEPIME HCL IN DEXTROSE 5 % 1 GM in Premix Bag 1 BAG IVPB SCH ×2 (08:18→21:57)
[2021-03-23] MEDS: Aspirin 81 mg Enteric Coated Tablet PO SCH (08:18)
[2021-03-23] MEDS: Amiodarone 200 MG TAB PO SCH (08:18)
[2021-03-23] MEDS: Apixaban 5 MG TAB PO SCH ×2 (08:18→22:21)
[2021-03-23] MEDS: Furosemide 20 MG TAB PO SCH (08:18)
[2021-03-23] MEDS: Carvedilol 25 MG TAB PO SCH ×2 (08:18→17:05)
[2021-03-23] MEDS: Polyvinyl Alcohol 1.4%/Povidone 0.6% Opth Drops EA EYE SCH ×2 (08:21→21:58)
[2021-03-24 04:38] LABS: Mean Corpuscular HGB CONC 33.5 g/dL (32.0-36.0); Mean Corpuscular Hemoglobin 31.1 pg (27.0-31.0); Mean Corpuscular Volume 92.7 fL (78.0-98.0); Mean Platelet Volume 7.2 fL (7.4-10.4); Platelet Count 533 thou/uL (130-400); RBC Distribution Width 13.3 % (11.5-14.5); Red Blood Cell (RBC) Count 3.52 mill/uL (4.20-5.40); White Blood Cell (WBC) Count 10.7 thou/uL (4.8-10.8)
[2021-03-24 04:39] LABS: ALT (SGPT) 20 U/L (8-55); AST (SGOT) 17 U/L (5-34); Albumin 3.1 g/dL (3.4-4.8); Alkaline Phosphatase 122 U/L (40-110); Anion Gap 13 mmol/L (10-20); BUN (Urea Nitrogen) 17 mg/dL (9.8-20.1); Bilirubin, Total 0.4 mg/dL (0.2-1.2); Calc. Creatinine Clearance 47 mL/min (70-130); Calcium 8.9 mg/dL (7.8-10.44); Carbon Dioxide 29 mmol/L (23-31); Chloride 95 mmol/L (98-107); Globulin 3.3 g/dL (2.4-3.5); Glucose 137 mg/dL (83-110); Potassium 3.5 mmol/L (3.5-5.1); Protein, Total 6.4 g/dL (5.8-8.1); Sodium 133 mmol/L (136-145)
[2021-03-24 06:45] LABS: Band 1 % (5-11); Eosinophils 8 % (0-10); Lymphocytes 34 % (21-51); MDiff Complete? YES; Monocytes 6 % (0-10); Neutrophil 51 % (42-75)
[2021-03-24] MEDS: Polyethylene Glycol 3350 17 GM Packet PO SCH (09:34)
[2021-03-24] MEDS: CEFEPIME HCL IN DEXTROSE 5 % 1 GM in Premix Bag 1 BAG IVPB SCH (09:35)
[2021-03-24] MEDS: Furosemide 20 MG TAB PO SCH (09:36)
[2021-03-24] MEDS: Aspirin 81 mg Enteric Coated Tablet PO SCH (09:36)
[2021-03-24] MEDS: Carvedilol 25 MG TAB PO SCH ×2 (09:36→17:11)
[2021-03-24] MEDS: Amiodarone 200 MG TAB PO SCH (09:36)
[2021-03-24] MEDS: Apixaban 5 MG TAB PO SCH ×2 (09:36→20:08)
[2021-03-24] MEDS: Polyvinyl Alcohol 1.4%/Povidone 0.6% Opth Drops EA EYE SCH ×2 (09:36→20:09)
[2021-03-24] MEDS: Cefepime 1 GM in Sodium Chloride 0.9% 100 ML IVPB SCH (20:09)
[2021-03-25 04:16] LABS: Hemoglobin 11.3 g/dL (12.0-16.0); Mean Corpuscular HGB CONC 33.7 g/dL (32.0-36.0); Mean Corpuscular Hemoglobin 31.3 pg (27.0-31.0); Mean Corpuscular Volume 92.9 fL (78.0-98.0); Mean Platelet Volume 7.2 fL (7.4-10.4); Platelet Count 513 thou/uL (130-400); RBC Distribution Width 13.4 % (11.5-14.5); Red Blood Cell (RBC) Count 3.61 mill/uL (4.20-5.40); White Blood Cell (WBC) Count 10.8 thou/uL (4.8-10.8)
[2021-03-25 04:39] LABS: ALT (SGPT) 20 U/L (8-55); AST (SGOT) 16 U/L (5-34); Albumin 3.1 g/dL (3.4-4.8); Alkaline Phosphatase 123 U/L (40-110); Anion Gap 15 mmol/L (10-20); BUN (Urea Nitrogen) 19 mg/dL (9.8-20.1); Bilirubin, Total 0.3 mg/dL (0.2-1.2); Calc. Creatinine Clearance 56 mL/min (70-130); Calcium 8.8 mg/dL (7.8-10.44); Carbon Dioxide 26 mmol/L (23-31); Chloride 97 mmol/L (98-107); Globulin 3.3 g/dL (2.4-3.5); Glucose 114 mg/dL (83-110); Potassium 3.8 mmol/L (3.5-5.1); Protein, Total 6.4 g/dL (5.8-8.1); Sodium 134 mmol/L (136-145)
[2021-03-25 04:54] LABS: Band 3 % (5-11); Eosinophils 4 % (0-10); Lymphocytes 22 % (21-51); MDiff Complete? YES; Monocytes 13 % (0-10); Myelocyte 1 % (0-0); Neutrophil 57 % (42-75)
[2021-03-25] MEDS: Polyethylene Glycol 3350 17 GM Packet PO SCH (09:28)
[2021-03-25] MEDS: Furosemide 20 MG TAB PO SCH (09:32)
[2021-03-25] MEDS: Carvedilol 25 MG TAB PO SCH ×2 (09:32→16:29)
[2021-03-25] MEDS: Apixaban 5 MG TAB PO SCH ×2 (09:32→21:02)
[2021-03-25] MEDS: Amiodarone 200 MG TAB PO SCH (09:32)
[2021-03-25] MEDS: Cefepime 1 GM in Sodium Chloride 0.9% 100 ML IVPB SCH ×2 (09:41→21:02)
[2021-03-25] MEDS: Polyvinyl Alcohol 1.4%/Povidone 0.6% Opth Drops EA EYE SCH ×2 (14:09→21:02)
[2021-03-25] MEDS: Aspirin 81 mg Enteric Coated Tablet PO SCH (14:14)
[2021-03-26 04:22] LABS: Hemoglobin 11.2 g/dL (12.0-16.0); Mean Corpuscular HGB CONC 32.6 g/dL (32.0-36.0); Mean Corpuscular Hemoglobin 30.4 pg (27.0-31.0); Mean Corpuscular Volume 93.2 fL (78.0-98.0); Mean Platelet Volume 7.3 fL (7.4-10.4); Platelet Count 468 thou/uL (130-400); RBC Distribution Width 13.6 % (11.5-14.5); Red Blood Cell (RBC) Count 3.68 mill/uL (4.20-5.40); White Blood Cell (WBC) Count 11.8 thou/uL (4.8-10.8)
[2021-03-26 04:37] LABS: ALT (SGPT) 21 U/L (8-55); AST (SGOT) 16 U/L (5-34); Albumin 3.1 g/dL (3.4-4.8); Alkaline Phosphatase 130 U/L (40-110); Anion Gap 14 mmol/L (10-20); BUN (Urea Nitrogen) 16 mg/dL (9.8-20.1); Bilirubin, Total 0.3 mg/dL (0.2-1.2); Calc. Creatinine Clearance 54 mL/min (70-130); Calcium 8.9 mg/dL (7.8-10.44); Carbon Dioxide 29 mmol/L (23-31); Chloride 97 mmol/L (98-107); Globulin 3.4 g/dL (2.4-3.5); Glucose 114 mg/dL (83-110); Potassium 3.9 mmol/L (3.5-5.1); Protein, Total 6.5 g/dL (5.8-8.1); Sodium 136 mmol/L (136-145)
[2021-03-26 06:32] LABS: Band 8 % (5-11); Lymphocytes 32 % (21-51); MDiff Complete? YES; Monocytes 10 % (0-10); Neutrophil 50 % (42-75)
[2021-03-26] MEDS: Polyethylene Glycol 3350 17 GM Packet PO SCH (09:47)
[2021-03-26] MEDS: Carvedilol 25 MG TAB PO SCH ×2 (09:49→17:56)
[2021-03-26] MEDS: Amiodarone 200 MG TAB PO SCH (09:49)
[2021-03-26] MEDS: Apixaban 5 MG TAB PO SCH ×2 (09:49→19:59)
[2021-03-26] MEDS: Furosemide 20 MG TAB PO SCH (09:49)
[2021-03-26] MEDS: Aspirin Chewable 81 MG TAB PO SCH (09:49)
[2021-03-26] MEDS: Polyvinyl Alcohol 1.4%/Povidone 0.6% Opth Drops EA EYE SCH ×2 (09:50→21:36)
[2021-03-27] MEDS: Polyethylene Glycol 3350 17 GM Packet PO SCH (08:36)
[2021-03-27] MEDS: Aspirin Chewable 81 MG TAB PO SCH (08:36)
[2021-03-27] MEDS: Furosemide 20 MG TAB PO SCH (08:36)
[2021-03-27] MEDS: Apixaban 5 MG TAB PO SCH ×2 (08:36→21:18)
[2021-03-27] MEDS: Amiodarone 200 MG TAB PO SCH (08:39)
[2021-03-27] MEDS: Carvedilol 25 MG TAB PO SCH ×2 (08:39→17:19)
[2021-03-27] MEDS: Polyvinyl Alcohol 1.4%/Povidone 0.6% Opth Drops EA EYE SCH ×2 (09:38→21:19)
[2021-03-28 01:00] LABS: SARS-CoV-2 PCR by NAA Not Detected (NotDetected)
[2021-03-28] MEDS: Acetaminophen 325 MG TAB PER TUBE PRN (05:50)
[2021-03-28] MEDS: Polyethylene Glycol 3350 17 GM Packet PO SCH (08:21)
[2021-03-28] MEDS: Furosemide 20 MG TAB PO SCH (08:21)
[2021-03-28] MEDS: Apixaban 5 MG TAB PO SCH ×2 (08:21→20:12)
[2021-03-28] MEDS: Carvedilol 25 MG TAB PO SCH ×2 (08:21→17:48)
[2021-03-28] MEDS: Aspirin Chewable 81 MG TAB PO SCH (08:21)
[2021-03-28] MEDS: Amiodarone 200 MG TAB PO SCH (08:21)
[2021-03-28] MEDS: Polyvinyl Alcohol 1.4%/Povidone 0.6% Opth Drops EA EYE SCH ×2 (08:26→20:12)
[2021-03-29] MEDS: Acetaminophen 325 MG TAB PER TUBE PRN (05:11)
[2021-03-29] MEDS: Furosemide 20 MG TAB PO SCH (09:23)
[2021-03-29] MEDS: Aspirin Chewable 81 MG TAB PO SCH (09:23)
[2021-03-29] MEDS: Apixaban 5 MG TAB PO SCH ×2 (09:23→20:21)
[2021-03-29] MEDS: Amiodarone 200 MG TAB PO SCH (09:23)
[2021-03-29] MEDS: Polyvinyl Alcohol 1.4%/Povidone 0.6% Opth Drops EA EYE SCH ×2 (09:24→20:21)
[2021-03-29] MEDS: Polyethylene Glycol 3350 17 GM Packet PO SCH (09:24)
[2021-03-29] MEDS: Carvedilol 25 MG TAB PO SCH ×2 (09:24→16:31)
[2021-03-29] MEDS: Nystatin Cream 30 GM TUBE TOP SCH (20:21)
[2021-03-30 05:54] LABS: #Basophils 0.1 thou/uL (0.0-0.2); #Eosinphils 0.5 thou/uL (0.0-0.7); #Lymphocytes 3.2 thou/uL (1.20-3.40); #Monocytes 1.2 thou/uL (0.11-0.59); #Neutrophils 9.1 thou/uL (1.40-6.50); %Basophils 0.5 % (0.0-1.0); %Eosinophils 3.5 % (0.0-10.0); %Lymphocytes 22.9 % (21.0-51.0); %Monocytes 8.5 % (0.0-10.0); %Neutrophils 64.6 % (42.0-75.0); Hemoglobin 11.9 g/dL (12.0-16.0); Mean Corpuscular HGB CONC 33.9 g/dL (32.0-36.0); Mean Corpuscular Hemoglobin 31.5 pg (27.0-31.0); Mean Corpuscular Volume 92.9 fL (78.0-98.0); Mean Platelet Volume 7.4 fL (7.4-10.4); Platelet Count 329 thou/uL (130-400); RBC Distribution Width 14.2 % (11.5-14.5); Red Blood Cell (RBC) Count 3.77 mill/uL (4.20-5.40); White Blood Cell (WBC) Count 14.1 thou/uL (4.8-10.8)
[2021-03-30 06:18] LABS: Anion Gap 14 mmol/L (10-20); BUN (Urea Nitrogen) 13 mg/dL (9.8-20.1); Calc. Creatinine Clearance 56 mL/min (70-130); Carbon Dioxide 27 mmol/L (23-31); Chloride 99 mmol/L (98-107); Potassium 3.8 mmol/L (3.5-5.1); Sodium 136 mmol/L (136-145)
[2021-03-30 06:19] LABS: ALT (SGPT) 16 U/L (8-55); AST (SGOT) 16 U/L (5-34); Albumin 3.2 g/dL (3.4-4.8); Alkaline Phosphatase 134 U/L (40-110); Bilirubin, Total 0.3 mg/dL (0.2-1.2); Calcium 9.2 mg/dL (7.8-10.44); Globulin 3.5 g/dL (2.4-3.5); Glucose 112 mg/dL (83-110); Protein, Total 6.7 g/dL (5.8-8.1)
[2021-03-30] MEDS: Aspirin Chewable 81 MG TAB PO SCH (08:55)
[2021-03-30] MEDS: Polyethylene Glycol 3350 17 GM Packet PO SCH (08:55)
[2021-03-30] MEDS: Nystatin Cream 30 GM TUBE TOP SCH ×3 (08:55→21:09)
[2021-03-30] MEDS: Furosemide 20 MG TAB PO SCH (08:55)
[2021-03-30] MEDS: Carvedilol 25 MG TAB PO SCH ×2 (08:55→16:38)
[2021-03-30] MEDS: Amiodarone 200 MG TAB PO SCH (08:55)
[2021-03-30] MEDS: Apixaban 5 MG TAB PO SCH ×2 (08:55→21:09)
[2021-03-30] MEDS: Polyvinyl Alcohol 1.4%/Povidone 0.6% Opth Drops EA EYE SCH ×2 (11:52→20:37)
[2021-03-30 12:10] LABS: Bilirubin Negative (Negative); Blood, Urine Negative (Negative); Clarity Clear (Clear); Glucose, Urine (Dipstick) Normal (Negative); Ketone, Urine Negative (Negative); Leukocyte 500 Leu/uL (Negative); Nitrite Negative (Negative); Protein, Urine (Dipstick) Negative (Neg-Trace); Specific Gravity, Urine 1.006 (1.002-1.036); Urobilinogen Normal mg/dL (Less than 2); pH, Urine 7.5 (5.0-9.0)
[2021-03-30 12:19] LABS: RBC/HPF 0-3 HPF (0-3)
[2021-03-30 12:20] LABS: Bacteria/HPF 2+ HPF (None Seen); Urine Culture Reflex No No; Yeast-Budding 1+ HPF (None Seen)
[2021-03-31 05:12] VITALS: BMI 25.2
[2021-03-31] MEDS: Carvedilol 25 MG TAB PO SCH ×2 (08:09→17:06)
[2021-03-31] MEDS: Aspirin Chewable 81 MG TAB PO SCH (08:09)
[2021-03-31] MEDS: Furosemide 20 MG TAB PO SCH (08:09)
[2021-03-31] MEDS: Polyethylene Glycol 3350 17 GM Packet PO SCH (08:09)
[2021-03-31] MEDS: Amiodarone 200 MG TAB PO SCH (08:10)
[2021-03-31] MEDS: Nystatin Cream 30 GM TUBE TOP SCH ×3 (08:10→21:35)
[2021-03-31] MEDS: Polyvinyl Alcohol 1.4%/Povidone 0.6% Opth Drops EA EYE SCH ×2 (08:11→21:34)
[2021-03-31 10:18] LABS: #Basophils 0.1 thou/uL (0.0-0.2); #Eosinphils 0.5 thou/uL (0.0-0.7); #Lymphocytes 2.9 thou/uL (1.20-3.40); #Monocytes 0.8 thou/uL (0.11-0.59); #Neutrophils 5.5 thou/uL (1.40-6.50); %Basophils 0.8 % (0.0-1.0); %Eosinophils 4.7 % (0.0-10.0); %Lymphocytes 29.5 % (21.0-51.0); %Monocytes 8.6 % (0.0-10.0); %Neutrophils 56.4 % (42.0-75.0); Hemoglobin 11.2 g/dL (12.0-16.0); Mean Corpuscular Hemoglobin 30.9 pg (27.0-31.0); Mean Corpuscular Volume 93.8 fL (78.0-98.0); Mean Platelet Volume 7.6 fL (7.4-10.4); Platelet Count 293 thou/uL (130-400); RBC Distribution Width 14.6 % (11.5-14.5); Red Blood Cell (RBC) Count 3.61 mill/uL (4.20-5.40); White Blood Cell (WBC) Count 9.8 thou/uL (4.8-10.8)
[2021-03-31] MEDS: Apixaban 5 MG TAB PO SCH ×2 (13:30→21:34)
[2021-04-01] MEDS: Aspirin Chewable 81 MG TAB PO SCH (08:58)
[2021-04-01] MEDS: Carvedilol 25 MG TAB PO SCH ×2 (08:58→17:01)
[2021-04-01] MEDS: Furosemide 20 MG TAB PO SCH (08:58)
[2021-04-01] MEDS: Amiodarone 200 MG TAB PO SCH (08:58)
[2021-04-01] MEDS: Apixaban 5 MG TAB PO SCH ×2 (08:59→21:57)
[2021-04-01] MEDS: Polyethylene Glycol 3350 17 GM Packet PO SCH (08:59)
[2021-04-01] MEDS: Polyvinyl Alcohol 1.4%/Povidone 0.6% Opth Drops EA EYE SCH ×2 (09:00→21:57)
[2021-04-01] MEDS: Nystatin Cream 30 GM TUBE TOP SCH ×4 (09:06→23:31)
[2021-04-01] MEDS ORDERED: Nystatin Cream 15 GM TUBE TOP SCH (23:00)
[2021-04-02 08:41] VITALS: BP 107/54
[2021-04-02] MEDS: Apixaban 5 MG TAB PO SCH (08:41)
[2021-04-02] MEDS: Polyethylene Glycol 3350 17 GM Packet PO SCH (08:41)
[2021-04-02] MEDS: Polyvinyl Alcohol 1.4%/Povidone 0.6% Opth Drops EA EYE SCH (08:41)
[2021-04-02] MEDS: Amiodarone 200 MG TAB PO SCH (08:42)
[2021-04-02] MEDS: Furosemide 20 MG TAB PO SCH (08:42)
[2021-04-02] MEDS: Aspirin Chewable 81 MG TAB PO SCH (08:42)
[2021-04-02] MEDS: Carvedilol 25 MG TAB PO SCH (08:42)
[2021-04-02] MEDS: Nystatin Cream 15 GM TUBE TOP SCH ×2 (08:46→16:19)
[2021-04-02 08:49] VITALS: TEMP 97.8
== END 2021-04-02 16:40 | DRG 870 ==
LOC: ERS 12:32 → CCU 15:27 → T4-A 03-10 12:50 → 2NO 03-10 21:47 → IMCU/EMU 03-19 02:38 → ONC 03-23 20:09
PROVIDERS: ADMIT Internal Medicine; ATTEND Internal Medicine
PROC: 5A1955Z Respiratory Ventilation, Greater than 96 Consecutive Hours (ICD-10-PCS; principal; 2021-02-28)
PROC: 06HY33Z Insertion of Infusion Device into Lower Vein, Percutaneous Approach (ICD-10-PCS; 2021-02-28)
PROC: 0D9670Z Drainage of Stomach with Drainage Device, Via Natural or Artificial Opening (ICD-10-PCS; 2021-02-28)
PROC: 0BH17EZ Insertion of Endotracheal Airway into Trachea, Via Natural or Artificial Opening (ICD-10-PCS; 2021-02-28)
PROC: 3E033XZ Introduction of Vasopressor into Peripheral Vein, Percutaneous Approach (ICD-10-PCS; 2021-02-28)
PROC: 0T9B70Z Drainage of Bladder with Drainage Device, Via Natural or Artificial Opening (ICD-10-PCS; 2021-02-28)
PROC: 0BD68ZX Extraction of Right Lower Lobe Bronchus, Via Natural or Artificial Opening Endoscopic, Diagnostic (ICD-10-PCS; 2021-03-05)
PROC: 5A09457 Assistance with Respiratory Ventilation, 24-96 Consecutive Hours, Continuous Positive Airway Pressure (ICD-10-PCS; 2021-03-10)
DX: A41.59 Other Gram-negative sepsis (principal); R65.21 Severe sepsis with septic shock; J96.01 Acute respiratory failure with hypoxia; J18.9 Pneumonia, unspecified organism; K72.00 Acute and subacute hepatic failure without coma; G93.41 Metabolic encephalopathy; I46.8 Cardiac arrest due to other underlying condition; I50.33 Acute on chronic diastolic (congestive) heart failure; J96.02 Acute respiratory failure with hypercapnia; N17.9 Acute kidney failure, unspecified; J98.11 Atelectasis; N30.00 Acute cystitis without hematuria; I13.0 Hypertensive heart and chronic kidney disease with heart failure and stage 1 through stage 4 chronic kidney disease, or unspecified chronic kidney disease; I48.92 Unspecified atrial flutter; Z20.822 Contact with and (suspected) exposure to COVID-19; Z66 Do not resuscitate; I44.7 Left bundle-branch block, unspecified; N18.30 Chronic kidney disease, stage 3 unspecified; E11.65 Type 2 diabetes mellitus with hyperglycemia; E11.22 Type 2 diabetes mellitus with diabetic chronic kidney disease; I48.0 Paroxysmal atrial fibrillation; E83.42 Hypomagnesemia; G20 Parkinson's disease; R29.6 Repeated falls; D63.1 Anemia in chronic kidney disease; R32 Unspecified urinary incontinence; E11.69 Type 2 diabetes mellitus with other specified complication; M21.371 Foot drop, right foot; R13.12 Dysphagia, oropharyngeal phase; B96.89 Other specified bacterial agents as the cause of diseases classified elsewhere; Z78.1 Physical restraint status; Z87.448 Personal history of other diseases of urinary system; Z98.890 Other specified postprocedural states; Z98.42 Cataract extraction status, left eye; Z98.41 Cataract extraction status, right eye; Z90.710 Acquired absence of both cervix and uterus; Z82.49 Family history of ischemic heart disease and other diseases of the circulatory system; Z79.899 Other long term (current) drug therapy; Z79.01 Long term (current) use of anticoagulants
CPT/HCPCS: 0240U; 31500; 31624; 36415; 36416; 36556; 36600; 51702; 70450; 71045; 74230; 80053; 80202; 81001; 81003; 81015; 82533; 82553; 82805; 83605; 83735; 83880; 84100; 84145; 84478; 84484; 85007; 85025; 85027; 85362; 85379; 85384; 85610; 85730; 86140; 87040; 87070; 87077; 87086; 87186; 87205; 88112; 88305; 88312; 93005; 93010; 93306; 94002; 94003; 94640; 94660; 95816; 95819; 96365; 96366; 96367; 96368; 99292; J0282; J0360; J0456; J0692; J0696; J1160; J1644; J1650; J1720; J1815; J1940; J2001; J2060; J2185; J2250; J2270; J2543; J2704; J3010; J3370; J3475; J3480; J3490; J7050; J7070; J7620; S0028; U0003; U0005